=== PATIENT | female | born 1945 | race Two or more races ===

== ENCOUNTER 2017-09-14 19:11 | Observation (INO) | payer MEDICARE ==
[~2017-09-14] VITALS: Ht 154.9 cm; Wt 71.8 kg
[~2017-09-14 19:11] MED LIST: ALLO300T2 PO; ASPI-920 PO; BENA5TAB2 PO; CETI10TA18 PO; CHOL2000 PO; CLOP75TA35 PO; COLC0.6T67 PO; FAMO-1 PO; ISOS30TA PO; LEVO50TA67 PO; META800T87 PO; METF500T7 PO; METO-539 PO; MOME17SP BOTHNARES; MULT1TAB74 PO; NITR0.4T48 SL; PSYL1PAC11 PO; RANO500T3 PO; ROSU10TA PO
[2017-09-14 19:44] LABS: BASOPHILS % (AUTO) 0.2 % (0-1); EOSINOPHILS # (AUTO) 0.3 X10'3 (0-0.9); EOSINOPHILS % (AUTO) 3.3 % (0-6); HEMOGLOBIN 14.1 g/dl (12.0-16.0); LYMPHOCYTES # (AUTO) 2.4 X10'3 (1.1-4.8); LYMPHOCYTES % (AUTO) 22.9 % (21-51); MEAN CORPUSCULAR HEMOGLOBIN 32.9 PG (27.0-31.0); MEAN CORPUSCULAR HGB CONC 33.6 % (33.0-36.5); MEAN CORPUSCULAR VOLUME 97.8 FL (78-98); MEAN PLATELET VOLUME 9.3 FL (7.4-10.4); MONOCYTES % (AUTO) 10.1 % (2-12); NEUTROPHILS # (AUTO) 6.6 X10'3 (1.8-7.7); NEUTROPHILS % (AUTO) 63.5 % (42-75); PLATELET COUNT 242 X10'3 (140-440); RED CELL DISTRIBUTION WIDTH 15.2 % (11.5-14.5); WHITE BLOOD COUNT 10.3 X10'3 (4.5-11.0)
[2017-09-14 19:52] LABS: PARTIAL THROMBOPLASTIN TIME 26 SECONDS (22-32); PROTHROMBIN TIME 10.2 SECONDS (9.0-12.0)
[2017-09-14 19:55] LABS: ALANINE AMINOTRANSFERASE 28 U/L (12-78); ALBUMIN 4.2 G/DL (3.4-5.0); ALBUMIN/GLOBULIN RATIO 1.2 (1.1-1.5); ALKALINE PHOSPHATASE 83 IU/L (46-116); ANION GAP 9 (8-16); ASPARTATE AMINO TRANSFERASE 19 U/L (10-37); BILIRUBIN,TOTAL 0.4 MG/DL (0.1-1.0); BLOOD UREA NITROGEN 20 MG/DL (7-18); BUN/CREATININE RATIO 13.5 (6.6-38.0); CALCIUM 9.8 MG/DL (8.5-10.1); CHLORIDE 103 MMOL/L (99-107); CREATININE 1.48 MG/DL (0.40-0.90); GLUCOSE 142 MG/DL (70-104); POTASSIUM 3.9 MMOL/L (3.5-5.1); SODIUM 141 MMOL/L (135-145); TOTAL CARBON DIOXIDE 29.5 MMOL/L (24-32); TOTAL PROTEIN 7.7 G/DL (6.4-8.2); eGFR 34 ML/MIN
[2017-09-14] MEDS ORDERED: diatrozoate meglu/diatrozoate sod (37% iodine) 120ML oral solution PO ONE (20:20)
[2017-09-14] MEDS ORDERED: nitroGLYCERIN 1gm ointment UD TP ONE (21:25)
[2017-09-14] MEDS ORDERED: nitroGLYCERIN 0.4mg SUBLingual tab SL PRN ×4 (21:25→22:15)
[2017-09-14] MEDS ORDERED: acetaminophen 325mg tablet PO PRN (22:10)
[2017-09-14] MEDS ORDERED: magnesium hydroxide 30ml (MOM) UD suspension PO PRN (22:10)
[2017-09-14] MEDS ORDERED: ondansetron/PF 4mg/2ml inj IV PRN (22:10)
[2017-09-14] MEDS ORDERED: METAXALONE PO PRN (22:15)
[2017-09-14] MEDS ORDERED: non-formulary drug (Mometasone Furoate* (Nasonex*) 2 SPRAYS) BOTHNARES PRN (22:15)
[2017-09-14 23:00] LABS: HEMOGLOBIN A1C 7.2 % (4.5-6.2)
[2017-09-14] MEDS ORDERED: GLIM4TAB79 PO (23:12)
[2017-09-15] VITALS (11 sets, daily range): BP systolic 98–148; BP diastolic 53–75
[2017-09-15] MEDS ORDERED: fluticasone nasal spray 16GM bottle NS PRN (00:40)
[2017-09-15 06:10] LABS: BASOPHILS % (AUTO) 0.4 % (0-1); EOSINOPHILS # (AUTO) 0.4 X10'3 (0-0.9); EOSINOPHILS % (AUTO) 4.8 % (0-6); HEMATOCRIT 40.6 % (35.0-45.0); HEMOGLOBIN 13.8 g/dl (12.0-16.0); LYMPHOCYTES # (AUTO) 2.2 X10'3 (1.1-4.8); LYMPHOCYTES % (AUTO) 25.3 % (21-51); MEAN CORPUSCULAR HEMOGLOBIN 33.1 PG (27.0-31.0); MEAN CORPUSCULAR VOLUME 97.5 FL (78-98); MEAN PLATELET VOLUME 9.5 FL (7.4-10.4); MONOCYTES # (AUTO) 0.8 X10'3 (0-0.9); MONOCYTES % (AUTO) 9.6 % (2-12); NEUTROPHILS # (AUTO) 5.1 X10'3 (1.8-7.7); NEUTROPHILS % (AUTO) 59.9 % (42-75); PLATELET COUNT 214 X10'3 (140-440); RED BLOOD COUNT 4.17 X10'6 (4.20-5.60); RED CELL DISTRIBUTION WIDTH 15.3 % (11.5-14.5); WHITE BLOOD COUNT 8.6 X10'3 (4.5-11.0)
[2017-09-15 06:31] LABS: ALANINE AMINOTRANSFERASE 26 U/L (12-78); ALBUMIN 3.6 G/DL (3.4-5.0); ALBUMIN/GLOBULIN RATIO 1.1 (1.1-1.5); ALKALINE PHOSPHATASE 79 IU/L (46-116); ANION GAP 9 (8-16); ASPARTATE AMINO TRANSFERASE 20 U/L (10-37); BILIRUBIN,TOTAL 0.4 MG/DL (0.1-1.0); BLOOD UREA NITROGEN 21 MG/DL (7-18); BUN/CREATININE RATIO 15.3 (6.6-38.0); CALCIUM 9.8 MG/DL (8.5-10.1); CHLORIDE 105 MMOL/L (99-107); CHOL/HDL RATIO 3.7 (0.00-4.99); CHOLESTEROL 146 MG/DL (0-200); CREATININE 1.37 MG/DL (0.40-0.90); GLUCOSE 165 MG/DL (70-104); HDL CHOLESTEROL 40 MG/DL (35-60); LDL CHOLESTEROL 79 MG/DL (50-100); POTASSIUM 4.1 MMOL/L (3.5-5.1); SODIUM 141 MMOL/L (135-145); TOTAL CARBON DIOXIDE 26.6 MMOL/L (24-32); TOTAL PROTEIN 6.8 G/DL (6.4-8.2); TRIGLYCERIDES 208 MG/DL (20-135); eGFR 38 ML/MIN
[2017-09-15] MEDS ORDERED: levoTHYROXINE 25mcg tablet PO SCH (07:00)
[2017-09-15] MEDS ORDERED: heparin, porcine 5000 units/ml vial SQ SCH (08:00)
[2017-09-15] MEDS ORDERED: metoprolol succinate 25mg (24-HOUR) SR. Tablet PO SCH (08:00)
[2017-09-15] MEDS ORDERED: isosorbide mononitrate 30mg tab.SR.24H PO SCH (08:00)
[2017-09-15] MEDS ORDERED: cetirizine 10mg tablet PO SCH (08:00)
[2017-09-15] MEDS ORDERED: lisinopril 5mg tablet PO SCH ×2 (08:00→11:56)
[2017-09-15] MEDS ORDERED: psyllium seed 3.4 gm packet PO SCH (08:00)
[2017-09-15] MEDS ORDERED: non-formulary drug (Benazepril HCl 1 TAB) PO SCH (08:00)
[2017-09-15] MEDS ORDERED: cyclobenzaprine 10mg tablet PO SCH (08:00)
[2017-09-15] MEDS ORDERED: vitamin D (cholecalciferol) 1,000 unit tablet PO SCH (08:00)
[2017-09-15] MEDS ORDERED: multivitamins, therapeutics tablet PO SCH (08:00)
[2017-09-15] MEDS ORDERED: clopidogrel 75mg tablet PO SCH (08:00)
[2017-09-15] MEDS ORDERED: CAFFEINE CITRATE 60 MG/3 ML injection vial IV PRN (08:05)
[2017-09-15] MEDS ORDERED: regadenoson 0.4mg/5ml syringe IV ONE ×2 (08:05→09:43)
[2017-09-15] MEDS ORDERED: nitroGLYCERIN 0.4mg SUBLingual tab SL PRN ×2 (08:05→14:20)
[2017-09-15] MEDS ORDERED: metoprolol tartrate 1mg/ml inj IV PRN (08:05)
[2017-09-15] MEDS ORDERED: atorvastatin 10mg tablet PO SCH (08:05)
[2017-09-15] MEDS ORDERED: aspirin 81mg tab.chew PO SCH (08:30)
[2017-09-15 09:18] LABS: CREATINE KINASE 109 U/L (26-192); LIPASE 206 U/L (73-393); MAGNESIUM 1.8 MG/DL (1.5-2.4)
[2017-09-15] MEDS ORDERED: CAFFEINE CITRATE 60 MG/3 ML injection vial IV ONE (09:43)
[2017-09-15] MEDS: famotidine 20mg tablet PO SCH ×2 (12:34→19:09)
[2017-09-15] MEDS: ranolazine 500mg SR tablet (Q12H) PO SCH ×2 (12:35→19:09)
[2017-09-15] MEDS ORDERED: aspirin 81mg tab.chew PO ONE (14:20)
[2017-09-15] MEDS ORDERED: clopidogrel 300mg tablet PO ONE (14:20)
[2017-09-15] MEDS ORDERED: morphine 4 MG/ML inj SYRINge IV PRN (14:25)
[2017-09-15 16:32] LABS: CLARITY,URINE CLEAR (Clear); COLOR,URINE YELLOW (Yellow); GLUCOSE, URINE NEGATIVE (Neg); KETONES,URINE NEGATIVE (Neg); LEUKOCYTE ESTERASE ,URINE NEGATIVE (Neg); NITRITES, URINE NEGATIVE (Neg); OCCULT BLOOD,URINE TRACE-LYSED (Neg); PROTEIN,URINE NEGATIVE (Neg); UROBILINOGEN,URINE 0.2 E.U/dL (0.2-1.0)
[2017-09-15 16:33] LABS: UA COLLECTION TYPE VOIDED
[2017-09-15 16:37] LABS: BACTERIA,URINE NONE SEEN /HPF (Neg); MUCUS STRANDS NONE SEEN /LPF (Neg); RBC,URINE 0-2 /HPF (0-2); SQUAMOUS EPITHELIAL CELL,UR FEW /LPF (FEW); WBC,URINE 0-4 /HPF (0-4)
[2017-09-15] MEDS ORDERED: dextrose 50%-water 50ml dispensing syringe IV PRN ×2 (16:55)
[2017-09-15] MEDS ORDERED: MESSAGE TO PHARMACY PO ONE (16:55)
[2017-09-15] MEDS ORDERED: glucagon, human recombinant 1mg kit SUBCUT PRN (16:55)
[2017-09-15] MEDS ORDERED: insulin Lispro (HumaLOG) vial - multi-dose SQ SCH (16:55)
[2017-09-15] MEDS ORDERED: dextrose ORAL solution 15 GM/59 ML bottle PO PRN ×2 (16:55)
[2017-09-15 17:27] LABS: D-DIMER 0.21 MG/L FEU (0-0.50)
[2017-09-15 17:32] LABS: TROPONIN I < 0.04 NG/ML (0.0-0.05)
[2017-09-15] MEDS ORDERED: enoxaparin 40mg/0.4ml syringe SQ SCH (20:00)
[2017-09-15] MEDS ORDERED: enoxaparin 100mg/ml syringe SQ SCH (20:00)
[2017-09-15] MEDS ORDERED: enoxaparin 30mg/0.3ml syringe SUBCUT SCH (20:00)
== END 2017-09-15 19:27 | disposition home or self-care (01) ==
LOC: ER 19:11 → ED HOLD 22:09 → PCU 3S 09-15 07:35
PROVIDERS: ADMIT Internal Medicine; ATTEND Internal Medicine
DX: R07.2 Precordial pain (principal); I25.119 Atherosclerotic heart disease of native coronary artery with unspecified angina pectoris; I12.9 Hypertensive chronic kidney disease with stage 1 through stage 4 chronic kidney disease, or unspecified chronic kidney disease; E11.22 Type 2 diabetes mellitus with diabetic chronic kidney disease; N18.9 Chronic kidney disease, unspecified; K21.9 Gastro-esophageal reflux disease without esophagitis; E78.00 Pure hypercholesterolemia, unspecified; I25.2 Old myocardial infarction; M19.90 Unspecified osteoarthritis, unspecified site; G89.29 Other chronic pain; M54.9 Dorsalgia, unspecified; Z87.891 Personal history of nicotine dependence
CPT/HCPCS: 36415; 71045; 78452; 80053; 80061; 81001; 82550; 82948; 83036; 83690; 83735; 83880; 84443; 84484; 85025; 85379; 85610; 85730; 93005; 93017; 96372; 99285; A9500; G0378; J1644; J1650; J7030; Q9963

== ENCOUNTER 2017-10-10 10:47 | Day surgery (SDC) | payer MEDICARE ==
[2017-10-07 10:10] LABS: BASOPHILS % (AUTO) 0.5 % (0-1); EOSINOPHILS # (AUTO) 0.5 X10'3 (0-0.9); EOSINOPHILS % (AUTO) 5.3 % (0-6); HEMATOCRIT 41.7 % (35.0-45.0); LYMPHOCYTES # (AUTO) 1.9 X10'3 (1.1-4.8); LYMPHOCYTES % (AUTO) 20.7 % (21-51); MEAN CORPUSCULAR HEMOGLOBIN 32.8 PG (27.0-31.0); MEAN CORPUSCULAR HGB CONC 33.5 % (33.0-36.5); MEAN PLATELET VOLUME 9.4 FL (7.4-10.4); MONOCYTES # (AUTO) 0.7 X10'3 (0-0.9); MONOCYTES % (AUTO) 7.5 % (2-12); NEUTROPHILS # (AUTO) 6.1 X10'3 (1.8-7.7); PLATELET COUNT 237 X10'3 (140-440); RED BLOOD COUNT 4.25 X10'6 (4.20-5.60); RED CELL DISTRIBUTION WIDTH 14.3 % (11.5-14.5); WHITE BLOOD COUNT 9.2 X10'3 (4.5-11.0)
[2017-10-07 10:19] LABS: PARTIAL THROMBOPLASTIN TIME 26 SECONDS (22-32); PROTHROMBIN TIME 10.3 SECONDS (9.0-12.0)
[2017-10-07 10:22] LABS: ANION GAP 9 (8-16); BLOOD UREA NITROGEN 29 MG/DL (7-18); BUN/CREATININE RATIO 19.3 (6.6-38.0); CALCIUM 9.3 MG/DL (8.5-10.1); CHLORIDE 102 MMOL/L (99-107); GLUCOSE 115 MG/DL (70-104); POTASSIUM 4.9 MMOL/L (3.5-5.1); SODIUM 140 MMOL/L (135-145); TOTAL CARBON DIOXIDE 29.2 MMOL/L (24-32); eGFR 34 ML/MIN
[2017-10-10] VITALS (10 sets, daily range): BP systolic 89–125; BP diastolic 40–69
[~2017-10-10] VITALS: Ht 154.9 cm; Wt 71.4 kg
[~2017-10-10 10:47] MED LIST changes: -CLOP75TA35 PO; +GLIM4TAB79 PO; -MOME17SP BOTHNARES; -MULT1TAB74 PO; -PSYL1PAC11 PO
[2017-10-10] MEDS ORDERED: LORazepam 0.5 MG tablet PO PRN (11:15)
[2017-10-10] MEDS ORDERED: diphenhydrAMINE 25mg capsule PO PRN (11:15)
[2017-10-10] MEDS ORDERED: normal saline 1000ml 1,000 ML IV SCH (11:15)
[2017-10-10] MEDS ORDERED: ALLO300T8 PO (11:40)
[2017-10-10] MEDS ORDERED: ROSU10TA PO (11:40)
[2017-10-10] MEDS ORDERED: MOME17SP BOTHNARES (11:40)
[2017-10-10] MEDS ORDERED: LIDOcaine 1% w/EPI 1:100,000 30ml vial (MDV) ONE (12:06)
[2017-10-10] MEDS ORDERED: fentaNYL/PF 50MCG/1 ML 2ML syringe ONE (12:07)
[2017-10-10] MEDS ORDERED: midazolam 2 mg/2 ml injection ONE (12:07)
[2017-10-10] MEDS ORDERED: iohexol 350MG/ML 100ml bottle IV ONE (12:07)
[2017-10-10] MEDS ORDERED: OXAZEpam 15mg capsule PO PRN (13:35)
[2017-10-10] MEDS ORDERED: ondansetron/PF 4mg/2ml inj IV PRN (13:35)
== END 2017-10-10 16:15 | disposition home or self-care (01) ==
LOC: SSTAY O 10:47
PROVIDERS: ATTEND Internal Medicine Interventional Cardiology
DX: I25.10 Atherosclerotic heart disease of native coronary artery without angina pectoris (principal); E78.5 Hyperlipidemia, unspecified; I65.23 Occlusion and stenosis of bilateral carotid arteries; G47.33 Obstructive sleep apnea (adult) (pediatric); E11.22 Type 2 diabetes mellitus with diabetic chronic kidney disease; I12.9 Hypertensive chronic kidney disease with stage 1 through stage 4 chronic kidney disease, or unspecified chronic kidney disease; N18.3 Chronic kidney disease, stage 3 (moderate); F03.90 Unspecified dementia, unspecified severity, without behavioral disturbance, psychotic disturbance, mood disturbance, and anxiety; K21.9 Gastro-esophageal reflux disease without esophagitis; I25.2 Old myocardial infarction; M19.90 Unspecified osteoarthritis, unspecified site; Z88.0 Allergy status to penicillin; Z91.048 Other nonmedicinal substance allergy status; Z88.1 Allergy status to other antibiotic agents; Z91.018 Allergy to other foods; Z96.698 Presence of other orthopedic joint implants; Z90.710 Acquired absence of both cervix and uterus; Z86.74 Personal history of sudden cardiac arrest; Z95.5 Presence of coronary angioplasty implant and graft; Z87.891 Personal history of nicotine dependence; Z90.49 Acquired absence of other specified parts of digestive tract; Z87.442 Personal history of urinary calculi; Z79.82 Long term (current) use of aspirin; Z79.84 Long term (current) use of oral hypoglycemic drugs; Z79.899 Other long term (current) drug therapy; Z98.890 Other specified postprocedural states; Z88.8 Allergy status to other drugs, medicaments and biological substances
CPT/HCPCS: 36415; 80048; 82948; 85025; 85610; 85730; 93005; 93458; 99152; A6257; C1769; J1644; J2250; J3010; J3490; J7030; Q0163; Q9967; A4620

== ENCOUNTER → 2018-08-28 | Emergency (ER) | payer MEDICARE ==
[~2018-08-28] VITALS: Ht 154.9 cm; Wt 64.9 kg
[~2018-08-28] MED LIST changes: -ALLO300T2 PO; +ALLO300T8 PO; -BENA5TAB2 PO; +BENA5TAB6 PO; -COLC0.6T67 PO; -META800T87 PO; +MOME17SP BOTHNARES; -ROSU10TA PO; +ROSU10TA2 PO; +acetaminophen 325mg tablet PO ONE; +diphenhydrAMINE 50 mg/ml inj IV ONE; +normal saline 1000ML IV soln IVB ONE; +proCHLORperazine 10 MG/2 ml inj IV ONE
--- NOTE | 2018-08-28 10:42 | NUR ---
PATIENT AWAITING DR RIVAS , DR RIVAS NOTIFIED OF PAIN LEVEL OF 12/30
[2018-08-28 13:17] VITALS: BP 164/92
== END | disposition home or self-care (01) ==
LOC: ER 09:24
DX: G43.909 Migraine, unspecified, not intractable, without status migrainosus (principal); I25.10 Atherosclerotic heart disease of native coronary artery without angina pectoris; E78.00 Pure hypercholesterolemia, unspecified; I25.2 Old myocardial infarction; K21.9 Gastro-esophageal reflux disease without esophagitis; I12.9 Hypertensive chronic kidney disease with stage 1 through stage 4 chronic kidney disease, or unspecified chronic kidney disease; E11.22 Type 2 diabetes mellitus with diabetic chronic kidney disease; N18.9 Chronic kidney disease, unspecified; G89.29 Other chronic pain; M19.90 Unspecified osteoarthritis, unspecified site; Z86.718 Personal history of other venous thrombosis and embolism; Z98.61 Coronary angioplasty status; Z90.49 Acquired absence of other specified parts of digestive tract; Z98.890 Other specified postprocedural states; Z90.710 Acquired absence of both cervix and uterus; Z88.8 Allergy status to other drugs, medicaments and biological substances; Z88.0 Allergy status to penicillin; Z91.018 Allergy to other foods; Z79.82 Long term (current) use of aspirin; Z79.84 Long term (current) use of oral hypoglycemic drugs; Z79.899 Other long term (current) drug therapy
CPT/HCPCS: 36415; 85651; 86140; 96374; 96375; 99283; J0780; J1200; J7030

== ENCOUNTER 2018-11-04 11:55 | Emergency (ER) | payer MEDICARE ==
[~2018-11-04] VITALS: Ht 154.9 cm; Wt 65.0 kg
[~2018-11-04 11:55] MED LIST changes: -acetaminophen 325mg tablet PO ONE; -diphenhydrAMINE 50 mg/ml inj IV ONE; -normal saline 1000ML IV soln IVB ONE; -proCHLORperazine 10 MG/2 ml inj IV ONE
[2018-11-04 12:41] LABS: BASOPHILS % (AUTO) 0.6 % (0-1); EOSINOPHILS # (AUTO) 0.3 X10'3 (0-0.9); EOSINOPHILS % (AUTO) 4.7 % (0-6); HEMATOCRIT 40.7 % (35.0-45.0); HEMOGLOBIN 13.4 g/dl (12.0-16.0); LYMPHOCYTES # (AUTO) 1.6 X10'3 (1.1-4.8); MEAN CORPUSCULAR HEMOGLOBIN 31.5 PG (27.0-31.0); MEAN CORPUSCULAR VOLUME 95.4 FL (78-98); MEAN PLATELET VOLUME 9.5 FL (7.4-10.4); MONOCYTES % (AUTO) 15.4 % (2-12); NEUTROPHILS # (AUTO) 3.4 X10'3 (1.8-7.7); NEUTROPHILS % (AUTO) 54.3 % (42-75); PLATELET COUNT 196 X10'3 (140-440); RED BLOOD COUNT 4.27 X10'6 (4.20-5.60); RED CELL DISTRIBUTION WIDTH 14.5 % (11.5-14.5); WHITE BLOOD COUNT 6.3 X10'3 (4.5-11.0)
[2018-11-04 12:51] LABS: ALANINE AMINOTRANSFERASE 52 U/L (12-78); ALBUMIN 3.8 G/DL (3.4-5.0); ALBUMIN/GLOBULIN RATIO 1.2 (1.1-1.5); ALKALINE PHOSPHATASE 85 IU/L (46-116); ANION GAP 9 (8-16); ASPARTATE AMINO TRANSFERASE 28 U/L (10-37); BILIRUBIN,TOTAL 0.3 MG/DL (0.1-1.0); BLOOD UREA NITROGEN 21 MG/DL (7-18); BUN/CREATININE RATIO 16.9 (6.6-38.0); CALCIUM 9.5 MG/DL (8.5-10.1); CHLORIDE 102 MMOL/L (99-107); CREATININE 1.24 MG/DL (0.40-0.90); GLUCOSE 153 MG/DL (70-104); POTASSIUM 4.2 MMOL/L (3.5-5.1); SODIUM 137 MMOL/L (135-145); TOTAL CARBON DIOXIDE 25.9 MMOL/L (24-32); TOTAL PROTEIN 7.1 G/DL (6.4-8.2); eGFR 42 ML/MIN
[2018-11-04 13:06] LABS: PARTIAL THROMBOPLASTIN TIME 28 SECONDS (22-32)
[2018-11-04 14:23] LABS: D-DIMER 0.34 MG/L FEU (0-0.50)
[2018-11-04] MEDS ORDERED: ESTR1VAG VG (16:10)
[2018-11-04 16:13] VITALS: BP 139/70
== END 2018-11-04 16:15 | disposition home or self-care (01) ==
LOC: ER 11:56
DX: R07.89 Other chest pain (principal); I25.10 Atherosclerotic heart disease of native coronary artery without angina pectoris; E78.00 Pure hypercholesterolemia, unspecified; I25.2 Old myocardial infarction; K21.9 Gastro-esophageal reflux disease without esophagitis; I12.9 Hypertensive chronic kidney disease with stage 1 through stage 4 chronic kidney disease, or unspecified chronic kidney disease; E11.22 Type 2 diabetes mellitus with diabetic chronic kidney disease; N18.9 Chronic kidney disease, unspecified; G89.29 Other chronic pain; M10.9 Gout, unspecified; M19.90 Unspecified osteoarthritis, unspecified site; Z87.11 Personal history of peptic ulcer disease; Z86.718 Personal history of other venous thrombosis and embolism; Z98.61 Coronary angioplasty status; Z90.49 Acquired absence of other specified parts of digestive tract; Z90.710 Acquired absence of both cervix and uterus; Z87.891 Personal history of nicotine dependence; Z95.9 Presence of cardiac and vascular implant and graft, unspecified; Z88.0 Allergy status to penicillin; Z88.1 Allergy status to other antibiotic agents; Z88.8 Allergy status to other drugs, medicaments and biological substances; Z91.018 Allergy to other foods; Z79.82 Long term (current) use of aspirin; Z79.84 Long term (current) use of oral hypoglycemic drugs; Z79.899 Other long term (current) drug therapy
CPT/HCPCS: 36415; 71045; 80053; 83880; 84484; 85025; 85379; 85610; 85730; 93005; 99284

== ENCOUNTER 2018-12-21 16:25 | Emergency (ER) | payer MEDICARE ==
[~2018-12-21] VITALS: Ht 154.9 cm; Wt 62.0 kg
[~2018-12-21 16:25] MED LIST changes: +ESTR1VAG VG; -GLIM4TAB79 PO; +METF500T20 PO; -METF500T7 PO; -METO-539 PO; -RANO500T3 PO
[2018-12-21 17:02] LABS: BASOPHILS # (AUTO) 0.1 X10'3 (0-0.2); BASOPHILS % (AUTO) 0.5 % (0-1); EOSINOPHILS # (AUTO) 0.2 X10'3 (0-0.9); EOSINOPHILS % (AUTO) 1.6 % (0-6); HEMATOCRIT 42.1 % (35.0-45.0); HEMOGLOBIN 13.9 g/dl (12.0-16.0); LYMPHOCYTES # (AUTO) 2.2 X10'3 (1.1-4.8); LYMPHOCYTES % (AUTO) 19.5 % (21-51); MEAN CORPUSCULAR HEMOGLOBIN 31.8 PG (27.0-31.0); MEAN CORPUSCULAR VOLUME 96.4 FL (78-98); MEAN PLATELET VOLUME 8.4 FL (7.4-10.4); MONOCYTES # (AUTO) 0.9 X10'3 (0-0.9); MONOCYTES % (AUTO) 8.1 % (2-12); NEUTROPHILS # (AUTO) 8.1 X10'3 (1.8-7.7); NEUTROPHILS % (AUTO) 70.3 % (42-75); PLATELET COUNT 236 X10'3 (140-440); RED BLOOD COUNT 4.36 X10'6 (4.20-5.60); RED CELL DISTRIBUTION WIDTH 16.7 % (11.5-14.5); WHITE BLOOD COUNT 11.5 X10'3 (4.5-11.0)
[2018-12-21 17:19] LABS: ALANINE AMINOTRANSFERASE 49 U/L (12-78); ALBUMIN 4.2 G/DL (3.4-5.0); ALBUMIN/GLOBULIN RATIO 1.3 (1.1-1.5); ALKALINE PHOSPHATASE 91 IU/L (46-116); ANION GAP 12 (8-16); ASPARTATE AMINO TRANSFERASE 36 U/L (10-37); BILIRUBIN,TOTAL 0.4 MG/DL (0.1-1.0); BLOOD UREA NITROGEN 25 MG/DL (7-18); BUN/CREATININE RATIO 19.5 (6.6-38.0); CALCIUM 10.2 MG/DL (8.5-10.1); CHLORIDE 105 MMOL/L (99-107); CREATININE 1.28 MG/DL (0.40-0.90); GLUCOSE 186 MG/DL (70-104); POTASSIUM 4.5 MMOL/L (3.5-5.1); SODIUM 142 MMOL/L (135-145); TOTAL CARBON DIOXIDE 25.4 MMOL/L (24-32); TOTAL PROTEIN 7.5 G/DL (6.4-8.2); eGFR 41 ML/MIN
[2018-12-21] MEDS ORDERED: normal saline 1000ML IV soln IVB ONE (17:30)
[2018-12-21] MEDS ORDERED: glycopyrrolate 0.2mg/ml inj IV ONE (17:30)
[2018-12-21] MEDS ORDERED: diphenhydrAMINE 50 mg/ml inj IV ONE (17:30)
[2018-12-21] MEDS ORDERED: metoclopramide 5 mg/ml inj IV ONE (17:30)
[2018-12-21 19:48] VITALS: BP 143/88
== END 2018-12-21 19:53 | disposition home or self-care (01) ==
LOC: ER 16:26
DX: R11.2 Nausea with vomiting, unspecified (principal); R10.30 Lower abdominal pain, unspecified; R19.7 Diarrhea, unspecified; R11.10 Vomiting, unspecified; I25.10 Atherosclerotic heart disease of native coronary artery without angina pectoris; E78.00 Pure hypercholesterolemia, unspecified; I25.2 Old myocardial infarction; K21.9 Gastro-esophageal reflux disease without esophagitis; G89.29 Other chronic pain; M10.9 Gout, unspecified; M19.90 Unspecified osteoarthritis, unspecified site; I12.9 Hypertensive chronic kidney disease with stage 1 through stage 4 chronic kidney disease, or unspecified chronic kidney disease; E11.22 Type 2 diabetes mellitus with diabetic chronic kidney disease; N18.9 Chronic kidney disease, unspecified; Z88.1 Allergy status to other antibiotic agents; Z88.0 Allergy status to penicillin; Z88.8 Allergy status to other drugs, medicaments and biological substances; Z91.018 Allergy to other foods; Z79.82 Long term (current) use of aspirin; Z79.899 Other long term (current) drug therapy; Z87.11 Personal history of peptic ulcer disease; Z87.19 Personal history of other diseases of the digestive system; Z86.718 Personal history of other venous thrombosis and embolism; Z90.49 Acquired absence of other specified parts of digestive tract; Z90.710 Acquired absence of both cervix and uterus; Z87.891 Personal history of nicotine dependence; Z79.4 Long term (current) use of insulin; Z95.5 Presence of coronary angioplasty implant and graft
CPT/HCPCS: 36415; 80053; 85025; 85610; 96361; 96374; 96375; 99283; J1200; J2765; J7030; J3490

== ENCOUNTER 2018-12-22 07:38 | Emergency (ER) | payer MEDICARE ==
[~2018-12-22] VITALS: Ht 154.9 cm; Wt 61.0 kg
[2018-12-22 09:13] LABS: EOSINOPHILS # (AUTO) 0.1 X10'3 (0-0.9); MONOCYTES # (AUTO) 0.9 X10'3 (0-0.9); NEUTROPHILS # (AUTO) 5.9 X10'3 (1.8-7.7)
[2018-12-22 09:15] LABS: BASOPHILS % (AUTO) 0.4 % (0-1); HEMATOCRIT 42.5 % (35.0-45.0); HEMOGLOBIN 14.2 g/dl (12.0-16.0); LYMPHOCYTES # (AUTO) 2.1 X10'3 (1.1-4.8); LYMPHOCYTES % (AUTO) 22.9 % (21-51); MEAN CORPUSCULAR HEMOGLOBIN 32.2 PG (27.0-31.0); MEAN CORPUSCULAR HGB CONC 33.3 g/dL (33.0-36.5); MEAN CORPUSCULAR VOLUME 96.7 FL (78-98); MEAN PLATELET VOLUME 9.4 FL (7.4-10.4); NEUTROPHILS % (AUTO) 65.7 % (42-75); PLATELET COUNT 194 X10'3 (140-440); RED BLOOD COUNT 4.39 X10'6 (4.20-5.60); RED CELL DISTRIBUTION WIDTH 16.6 % (11.5-14.5)
[2018-12-22 09:31] LABS: ALANINE AMINOTRANSFERASE 39 U/L (12-78); ALBUMIN/GLOBULIN RATIO 1.3 (1.1-1.5); ALKALINE PHOSPHATASE 84 IU/L (46-116); ANION GAP 14 (8-16); ASPARTATE AMINO TRANSFERASE 35 U/L (10-37); BILIRUBIN,TOTAL 0.5 MG/DL (0.1-1.0); BLOOD UREA NITROGEN 17 MG/DL (7-18); BUN/CREATININE RATIO 16.7 (6.6-38.0); CALCIUM 9.6 MG/DL (8.5-10.1); CHLORIDE 105 MMOL/L (99-107); CREATININE 1.02 MG/DL (0.40-0.90); GLUCOSE 151 MG/DL (70-104); POTASSIUM 3.9 MMOL/L (3.5-5.1); SODIUM 140 MMOL/L (135-145); TOTAL CARBON DIOXIDE 21.5 MMOL/L (24-32); TOTAL PROTEIN 7.2 G/DL (6.4-8.2); eGFR 53 ML/MIN
--- NOTE | 2018-12-22 10:06 | NUR ---
pt out to ct with extension work director via wheelchair
[2018-12-22 12:03] VITALS: BP 155/91
== END 2018-12-22 12:05 | disposition home or self-care (01) ==
LOC: ER 07:38
DX: K62.5 Hemorrhage of anus and rectum (principal); N28.89 Other specified disorders of kidney and ureter; I25.10 Atherosclerotic heart disease of native coronary artery without angina pectoris; E78.00 Pure hypercholesterolemia, unspecified; I25.2 Old myocardial infarction; K21.9 Gastro-esophageal reflux disease without esophagitis; I12.9 Hypertensive chronic kidney disease with stage 1 through stage 4 chronic kidney disease, or unspecified chronic kidney disease; E11.22 Type 2 diabetes mellitus with diabetic chronic kidney disease; N18.9 Chronic kidney disease, unspecified; G89.29 Other chronic pain; M10.9 Gout, unspecified; M19.90 Unspecified osteoarthritis, unspecified site; Z98.61 Coronary angioplasty status; Z90.49 Acquired absence of other specified parts of digestive tract; Z86.718 Personal history of other venous thrombosis and embolism; Z87.11 Personal history of peptic ulcer disease; Z90.710 Acquired absence of both cervix and uterus
CPT/HCPCS: 36415; 74176; 80053; 85025; 99284

== ENCOUNTER 2019-04-14 07:46 | Emergency (ER) | payer MEDICARE ==
[~2019-04-14] VITALS: Ht 154.9 cm; Wt 60.0 kg
[2019-04-14] MEDS ORDERED: aspirin 81mg tab.chew PO ONE (08:15)
[2019-04-14] MEDS ORDERED: ondansetron 4mg rapidly disintigrating tab PO ONE (08:20)
[2019-04-14] MEDS: nitroGLYCERIN 0.4mg SUBLingual tab SL PRN ×4 (08:21→08:47)
[2019-04-14 08:49] LABS: BASOPHILS # (AUTO) 0.1 X10'3 (0-0.2); BASOPHILS % (AUTO) 1.9 % (0-1); EOSINOPHILS # (AUTO) 0.2 X10'3 (0-0.9); EOSINOPHILS % (AUTO) 3.1 % (0-6); HEMATOCRIT 41.5 % (35.0-45.0); LYMPHOCYTES # (AUTO) 2.6 X10'3 (1.1-4.8); MEAN CORPUSCULAR HGB CONC 33.8 g/dL (33.0-36.5); MEAN CORPUSCULAR VOLUME 97.6 FL (78-98); MONOCYTES # (AUTO) 0.7 X10'3 (0-0.9); MONOCYTES % (AUTO) 10.6 % (2-12); NEUTROPHILS # (AUTO) 3.2 X10'3 (1.8-7.7); NEUTROPHILS % (AUTO) 46.4 % (42-75); PLATELET COUNT 224 X10'3 (140-440); RED BLOOD COUNT 4.25 X10'6 (4.20-5.60); RED CELL DISTRIBUTION WIDTH 14.4 % (11.5-14.5); WHITE BLOOD COUNT 6.9 X10'3 (4.5-11.0)
[2019-04-14 09:01] LABS: ALANINE AMINOTRANSFERASE 34 U/L (12-78); ALBUMIN 4.3 G/DL (3.4-5.0); ALBUMIN/GLOBULIN RATIO 1.4 (1.1-1.5); ALKALINE PHOSPHATASE 75 IU/L (46-116); ANION GAP 7 (8-16); ASPARTATE AMINO TRANSFERASE 26 U/L (10-37); BILIRUBIN,TOTAL 0.4 MG/DL (0.1-1.0); BLOOD UREA NITROGEN 19 MG/DL (7-18); BUN/CREATININE RATIO 17.6 (6.6-38.0); CALCIUM 9.9 MG/DL (8.5-10.1); CHLORIDE 104 MMOL/L (99-107); CREATININE 1.08 MG/DL (0.40-0.90); GLUCOSE 143 MG/DL (70-104); POTASSIUM 4.3 MMOL/L (3.5-5.1); SODIUM 139 MMOL/L (135-145); TOTAL CARBON DIOXIDE 28.2 MMOL/L (24-32); TOTAL PROTEIN 7.4 G/DL (6.4-8.2); eGFR 49 ML/MIN
[2019-04-14] MEDS ORDERED: NITR0.4T51 SL (11:11)
[2019-04-14 11:46] VITALS: BP 134/77
== END 2019-04-14 11:53 | disposition home or self-care (01) ==
LOC: ER 07:47
DX: R07.89 Other chest pain (principal); I25.10 Atherosclerotic heart disease of native coronary artery without angina pectoris; E78.00 Pure hypercholesterolemia, unspecified; I25.2 Old myocardial infarction; K21.9 Gastro-esophageal reflux disease without esophagitis; G89.29 Other chronic pain; M10.9 Gout, unspecified; M19.90 Unspecified osteoarthritis, unspecified site; I12.9 Hypertensive chronic kidney disease with stage 1 through stage 4 chronic kidney disease, or unspecified chronic kidney disease; E11.22 Type 2 diabetes mellitus with diabetic chronic kidney disease; N18.9 Chronic kidney disease, unspecified; Z95.5 Presence of coronary angioplasty implant and graft; Z90.49 Acquired absence of other specified parts of digestive tract; Z90.710 Acquired absence of both cervix and uterus; Z86.718 Personal history of other venous thrombosis and embolism; Z88.1 Allergy status to other antibiotic agents; Z88.0 Allergy status to penicillin; Z79.82 Long term (current) use of aspirin; Z79.899 Other long term (current) drug therapy
CPT/HCPCS: 36415; 71045; 80053; 84484; 85025; 93005; 99284

== ENCOUNTER 2019-05-21 12:42 | Emergency (ER) | payer MEDICARE ==
[~2019-05-21] VITALS: Ht 154.9 cm; Wt 63.0 kg
[2019-05-21 13:10] LABS: CLARITY,URINE SLIGHTLY CLOUDY (Clear); COLOR,URINE YELLOW (Yellow); GLUCOSE, URINE NEGATIVE (Neg); KETONES,URINE NEGATIVE (Neg); LEUKOCYTE ESTERASE ,URINE NEGATIVE (Neg); NITRITES, URINE NEGATIVE (Neg); OCCULT BLOOD,URINE TRACE-INTACT (Neg); PH,URINE 5.5 (4.8-8.0); PROTEIN,URINE NEGATIVE (Neg); UROBILINOGEN,URINE 0.2 E.U/dL (0.2-1.0)
[2019-05-21 13:10] LABS: BASOPHILS % (AUTO) 0.5 % (0-1); EOSINOPHILS # (AUTO) 0.4 X10'3 (0-0.9); EOSINOPHILS % (AUTO) 4.8 % (0-6); HEMATOCRIT 41.6 % (35.0-45.0); HEMOGLOBIN 13.8 g/dl (12.0-16.0); LYMPHOCYTES # (AUTO) 3.3 X10'3 (1.1-4.8); MEAN CORPUSCULAR HEMOGLOBIN 32.1 PG (27.0-31.0); MEAN CORPUSCULAR HGB CONC 33.2 g/dL (33.0-36.5); MEAN CORPUSCULAR VOLUME 96.7 FL (78-98); MEAN PLATELET VOLUME 8.7 FL (7.4-10.4); MONOCYTES # (AUTO) 0.8 X10'3 (0-0.9); MONOCYTES % (AUTO) 8.3 % (2-12); NEUTROPHILS # (AUTO) 4.8 X10'3 (1.8-7.7); NEUTROPHILS % (AUTO) 51.4 % (42-75); PLATELET COUNT 263 X10'3 (140-440); RED CELL DISTRIBUTION WIDTH 14.1 % (11.5-14.5); WHITE BLOOD COUNT 9.4 X10'3 (4.5-11.0)
[2019-05-21 13:12] LABS: UA COLLECTION TYPE CLN CATCH MIDSTREAM
[2019-05-21 13:30] LABS: ALANINE AMINOTRANSFERASE 32 U/L (12-78); ALBUMIN 4.3 G/DL (3.4-5.0); ALBUMIN/GLOBULIN RATIO 1.3 (1.1-1.5); ALKALINE PHOSPHATASE 80 IU/L (46-116); AMYLASE 75 U/L (25-115); ANION GAP 10 (8-16); ASPARTATE AMINO TRANSFERASE 27 U/L (10-37); BILIRUBIN,TOTAL 0.3 MG/DL (0.1-1.0); BLOOD UREA NITROGEN 24 MG/DL (7-18); BUN/CREATININE RATIO 22.9 (6.6-38.0); CALCIUM 9.9 MG/DL (8.5-10.1); CHLORIDE 104 MMOL/L (99-107); CREATININE 1.05 MG/DL (0.40-0.90); GLUCOSE 119 MG/DL (70-104); LIPASE 244 U/L (73-393); POTASSIUM 4.3 MMOL/L (3.5-5.1); SODIUM 145 MMOL/L (135-145); TOTAL PROTEIN 7.5 G/DL (6.4-8.2); eGFR 51 ML/MIN
[2019-05-21 13:34] LABS: BACTERIA,URINE FEW /HPF (Neg); MUCUS STRANDS FEW /LPF (Neg); RBC,URINE 0-2 /HPF (0-2); SQUAMOUS EPITHELIAL CELL,UR MODERATE /LPF (FEW); WBC,URINE 0-4 /HPF (0-4)
[2019-05-21] MEDS ORDERED: ondansetron/PF 4mg/2ml inj IV ONE (14:10)
[2019-05-21] MEDS ORDERED: HYDROcodone/acetaminophen 5mg/325mg tablet PO ONE (14:15)
[2019-05-21] MEDS ORDERED: ondansetron 4mg rapidly disintigrating tab PO ONE (14:15)
[2019-05-21] MEDS ORDERED: BISA-155 PO (14:57)
[2019-05-21 15:12] VITALS: BP 145/80
== END 2019-05-21 15:15 | disposition home or self-care (01) ==
LOC: ER 12:43
DX: R10.84 Generalized abdominal pain (principal); R11.0 Nausea; I25.10 Atherosclerotic heart disease of native coronary artery without angina pectoris; I25.2 Old myocardial infarction; K21.9 Gastro-esophageal reflux disease without esophagitis; I12.9 Hypertensive chronic kidney disease with stage 1 through stage 4 chronic kidney disease, or unspecified chronic kidney disease; E11.22 Type 2 diabetes mellitus with diabetic chronic kidney disease; N18.9 Chronic kidney disease, unspecified; M19.90 Unspecified osteoarthritis, unspecified site; G89.29 Other chronic pain; Z86.718 Personal history of other venous thrombosis and embolism; Z98.61 Coronary angioplasty status; Z90.49 Acquired absence of other specified parts of digestive tract; Z90.710 Acquired absence of both cervix and uterus; Z98.890 Other specified postprocedural states; Z88.1 Allergy status to other antibiotic agents; Z88.0 Allergy status to penicillin; Z88.8 Allergy status to other drugs, medicaments and biological substances; Z91.018 Allergy to other foods; Z79.82 Long term (current) use of aspirin; Z79.84 Long term (current) use of oral hypoglycemic drugs; Z79.899 Other long term (current) drug therapy
CPT/HCPCS: 36415; 74176; 80053; 81001; 82150; 83690; 85025; 99284

== ENCOUNTER 2019-08-17 17:40 | Inpatient (IN) | payer MEDICARE ==
[~2019-08-17] VITALS: Ht 154.9 cm; Wt 63.1 kg
[~2019-08-17 17:40] MED LIST changes: +BISA-155 PO
[2019-08-17 18:21] LABS: BASOPHILS % (AUTO) 0.4 % (0-1); EOSINOPHILS # (AUTO) 0.1 X10'3 (0-0.9); HEMATOCRIT 41.4 % (35.0-45.0); HEMOGLOBIN 13.6 g/dl (12.0-16.0); MEAN CORPUSCULAR HEMOGLOBIN 31.9 PG (27.0-31.0); MEAN CORPUSCULAR HGB CONC 32.8 g/dL (33.0-36.5); MEAN CORPUSCULAR VOLUME 97.3 FL (78-98); MEAN PLATELET VOLUME 8.9 FL (7.4-10.4); MONOCYTES # (AUTO) 0.9 X10'3 (0-0.9); MONOCYTES % (AUTO) 7.9 % (2-12); NEUTROPHILS # (AUTO) 8.7 X10'3 (1.8-7.7); NEUTROPHILS % (AUTO) 73.7 % (42-75); PLATELET COUNT 241 X10'3 (140-440); RED BLOOD COUNT 4.26 X10'6 (4.20-5.60); RED CELL DISTRIBUTION WIDTH 14.1 % (11.5-14.5); WHITE BLOOD COUNT 11.8 X10'3 (4.5-11.0)
[2019-08-17] MEDS ORDERED: aspirin 81mg tab.chew PO ONE (18:25)
[2019-08-17] MEDS ORDERED: nitroGLYCERIN 0.4mg SUBLingual tab SL PRN ×2 (18:25→20:25)
[2019-08-17] MEDS ORDERED: nitroGLYCERIN 0.4mg/hour patch TD ONE (18:25)
--- NOTE | 2019-08-17 18:29 | NUR ---
Patients HR going up to 170-190's, advised THANG Perez. Will get a new EKG.
[2019-08-17 18:36] LABS: ALANINE AMINOTRANSFERASE 29 U/L (12-78); ALBUMIN 4.4 G/DL (3.4-5.0); ALBUMIN/GLOBULIN RATIO 1.4 (1.1-1.5); ALKALINE PHOSPHATASE 70 IU/L (46-116); ANION GAP 9 (8-16); ASPARTATE AMINO TRANSFERASE 28 U/L (10-37); BILIRUBIN,TOTAL 0.3 MG/DL (0.1-1.0); BLOOD UREA NITROGEN 29 MG/DL (7-18); BUN/CREATININE RATIO 21.2 (6.6-38.0); CALCIUM 10.2 MG/DL (8.5-10.1); CHLORIDE 104 MMOL/L (99-107); CREATININE 1.37 MG/DL (0.40-0.90); GLUCOSE 126 MG/DL (70-104); POTASSIUM 4.1 MMOL/L (3.5-5.1); SODIUM 140 MMOL/L (135-145); TOTAL CARBON DIOXIDE 26.6 MMOL/L (24-32); TOTAL PROTEIN 7.5 G/DL (6.4-8.2); eGFR 37 ML/MIN
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
[2019-08-17 18:50] LABS: MAGNESIUM 1.8 MG/DL (1.5-2.4)
[2019-08-17 19:42] LABS: PARTIAL THROMBOPLASTIN TIME 27 SECONDS (22-32)
[2019-08-17] MEDS ORDERED: nitroGLYCERIN-Tridil 50MG/D5W 250 ML IV SCH (20:15)
[2019-08-17] MEDS ORDERED: morphine 2 MG/ML inj. syringe IV PRN ×2 (20:25)
[2019-08-17] MEDS ORDERED: acetaminophen 325mg tablet PO PRN (20:25)
[2019-08-17] MEDS ORDERED: magnesium hydroxide 30ml (MOM) UD suspension PO PRN (20:25)
[2019-08-17] MEDS ORDERED: ESTRADIOL VG SCH (20:25)
[2019-08-17] MEDS ORDERED: ondansetron/PF 4mg/2ml inj IV PRN (20:25)
[2019-08-17] MEDS ORDERED: mag hydrox/Alum hydrox/simeth 30ml oral suspension PO PRN (20:25)
[2019-08-17] MEDS ORDERED: bisacodyl 5mg tablet.DR PO SCH (20:25)
[2019-08-17] MEDS ORDERED: metoprolol tartrate 1mg/ml inj IV ONE (20:30)
[2019-08-17] MEDS ORDERED: atorvastatin 20mg tablet PO SCH (21:00)
[2019-08-17] MEDS: metoprolol tartrate 25mg tablet PO SCH (21:05)
[2019-08-17 22:49] VITALS: BP 133/65
[2019-08-18 00:41] LABS: BASOPHILS % (AUTO) 0.5 % (0-1); EOSINOPHILS # (AUTO) 0.2 X10'3 (0-0.9); EOSINOPHILS % (AUTO) 2.1 % (0-6); HEMATOCRIT 38.7 % (35.0-45.0); HEMOGLOBIN 12.9 g/dl (12.0-16.0); LYMPHOCYTES # (AUTO) 2.9 X10'3 (1.1-4.8); LYMPHOCYTES % (AUTO) 35.8 % (21-51); MEAN CORPUSCULAR HEMOGLOBIN 32.6 PG (27.0-31.0); MEAN CORPUSCULAR HGB CONC 33.5 g/dL (33.0-36.5); MEAN CORPUSCULAR VOLUME 97.5 FL (78-98); MEAN PLATELET VOLUME 8.9 FL (7.4-10.4); MONOCYTES # (AUTO) 0.7 X10'3 (0-0.9); MONOCYTES % (AUTO) 8.8 % (2-12); NEUTROPHILS # (AUTO) 4.3 X10'3 (1.8-7.7); NEUTROPHILS % (AUTO) 52.8 % (42-75); PLATELET COUNT 209 X10'3 (140-440); RED BLOOD COUNT 3.97 X10'6 (4.20-5.60); RED CELL DISTRIBUTION WIDTH 14.1 % (11.5-14.5); WHITE BLOOD COUNT 8.2 X10'3 (4.5-11.0)
[2019-08-18 00:59] LABS: ALANINE AMINOTRANSFERASE 25 U/L (12-78); ALBUMIN 3.6 G/DL (3.4-5.0); ALBUMIN/GLOBULIN RATIO 1.2 (1.1-1.5); ALKALINE PHOSPHATASE 62 IU/L (46-116); ANION GAP 7 (8-16); ASPARTATE AMINO TRANSFERASE 23 U/L (10-37); BILIRUBIN,TOTAL 0.3 MG/DL (0.1-1.0); BLOOD UREA NITROGEN 26 MG/DL (7-18); BUN/CREATININE RATIO 20.8 (6.6-38.0); CALCIUM 9.5 MG/DL (8.5-10.1); CHLORIDE 107 MMOL/L (99-107); CREATININE 1.25 MG/DL (0.40-0.90); GLUCOSE 193 MG/DL (70-104); POTASSIUM 3.9 MMOL/L (3.5-5.1); SODIUM 143 MMOL/L (135-145); TOTAL CARBON DIOXIDE 29.2 MMOL/L (24-32); TOTAL PROTEIN 6.5 G/DL (6.4-8.2); eGFR 42 ML/MIN
[2019-08-18 02:00] VITALS: BP 127/70
[2019-08-18 03:00] VITALS: BP 124/71
[2019-08-18 04:00] VITALS: BP 123/62
[2019-08-18 06:00] VITALS: BP_SYST 118; BP_SYST 153; BP_DIAS 101; BP_DIAS 82
--- NOTE | 2019-08-18 06:40 | NUR ---
Patient in room PCU 3028. I have received report from Radha KWONG and had the opportunity to ask questions and assume patient care. Awake and alert no signs of distress.
--- NOTE | 2019-08-18 06:41 | NUR ---
Patient in room PCU 3028. I have received report from VARGHESE Garcia and had the opportunity to ask questions and assume patient care.
[2019-08-18] MEDS: metoprolol tartrate 25mg tablet PO SCH (07:22)
[2019-08-18] MEDS ORDERED: levoTHYROXINE 25mcg tablet PO SCH (08:00)
[2019-08-18] MEDS ORDERED: cetirizine 10mg tablet PO SCH (08:00)
[2019-08-18] MEDS ORDERED: allopurinol 300 MG tablet PO SCH (08:00)
[2019-08-18] MEDS ORDERED: heparin, porcine 5000 units/ml vial SQ SCH (08:00)
[2019-08-18] MEDS ORDERED: aspirin 81mg tab.chew PO SCH (08:00)
[2019-08-18] MEDS ORDERED: famotidine 20mg tablet PO SCH (08:00)
[2019-08-18] MEDS ORDERED: lisinopril 5mg tablet PO SCH (08:00)
[2019-08-18 11:00] VITALS: BP 127/59
--- NOTE | 2019-08-18 11:06 | NUR ---
Per Dr. Peralta's orders stopped nitro drip.
[2019-08-18] MEDS ORDERED: METO-395 PO (12:10)
--- NOTE | 2019-08-18 13:03 | NUR ---
Patient ambulated 600 feet, no sob, no sign of distress.
--- NOTE | 2019-08-18 13:54 | NUR ---
Patient is stable for discharge per MD orders. All discharge instructions reviewed with patient and all questions answered. New prescriptions called into [facility] pharmacy escript. PIV discontinued, media monitor discontinued. [facility] mode of transport was a personal vehicle.
--- NOTE | 2019-08-18 13:54 | NUR ---
[place] Medication Administration: For this medication-pass time frame, all medication were reviewed, dispensed, administered and documented per hospital policy by VARGHESE Milton.
--- NOTE | 2019-08-18 13:54 | NUR ---
[place] documentation: I have reviewed and agree with all interventions, assessments performed and documented by VARGHESE Milton.
== END 2019-08-18 13:54 | disposition home or self-care (01) | DRG 303 ==
LOC: ER 17:40 → ED HOLD 20:23 → PCU 3S 22:39
PROVIDERS: ADMIT Internal Medicine; ATTEND Internal Medicine
DX: I25.110 Atherosclerotic heart disease of native coronary artery with unstable angina pectoris (principal); E11.22 Type 2 diabetes mellitus with diabetic chronic kidney disease; E78.00 Pure hypercholesterolemia, unspecified; I12.9 Hypertensive chronic kidney disease with stage 1 through stage 4 chronic kidney disease, or unspecified chronic kidney disease; I25.2 Old myocardial infarction; N18.9 Chronic kidney disease, unspecified; Z87.11 Personal history of peptic ulcer disease; Z87.19 Personal history of other diseases of the digestive system; Z95.5 Presence of coronary angioplasty implant and graft; Z90.710 Acquired absence of both cervix and uterus; Z87.891 Personal history of nicotine dependence; Z88.0 Allergy status to penicillin; Z88.8 Allergy status to other drugs, medicaments and biological substances; Z88.1 Allergy status to other antibiotic agents
CPT/HCPCS: 36415; 71045; 80053; 83735; 83880; 84484; 85025; 85610; 85730; 87081; 93005; 99285; G0378; J1644; J3490

== ENCOUNTER 2019-09-19 22:18 | Emergency (ER) | payer MEDICARE ==
[~2019-09-19] VITALS: Ht 154.9 cm; Wt 62.7 kg
[~2019-09-19 22:18] MED LIST changes: -ISOS30TA PO; +METF-900 PO; -METF500T20 PO; +METO-395 PO; -MOME17SP BOTHNARES
[2019-09-19] MEDS ORDERED: LORazepam 2 mg/ml vial IV ONE (22:45)
[2019-09-19 22:47] LABS: BASOPHILS % (AUTO) 0.5 % (0-1); EOSINOPHILS # (AUTO) 0.3 X10'3 (0-0.9); EOSINOPHILS % (AUTO) 3.8 % (0-6); HEMATOCRIT 41.3 % (35.0-45.0); HEMOGLOBIN 13.5 g/dl (12.0-16.0); LYMPHOCYTES # (AUTO) 1.7 X10'3 (1.1-4.8); LYMPHOCYTES % (AUTO) 22.8 % (21-51); MEAN CORPUSCULAR HEMOGLOBIN 32.1 PG (27.0-31.0); MEAN CORPUSCULAR HGB CONC 32.7 g/dL (33.0-36.5); MEAN CORPUSCULAR VOLUME 98.1 FL (78-98); MONOCYTES # (AUTO) 0.7 X10'3 (0-0.9); NEUTROPHILS # (AUTO) 4.7 X10'3 (1.8-7.7); NEUTROPHILS % (AUTO) 62.9 % (42-75); PLATELET COUNT 226 X10'3 (140-440); RED BLOOD COUNT 4.21 X10'6 (4.20-5.60); RED CELL DISTRIBUTION WIDTH 14.4 % (11.5-14.5); WHITE BLOOD COUNT 7.5 X10'3 (4.5-11.0)
[2019-09-19 23:04] LABS: ALANINE AMINOTRANSFERASE 27 U/L (12-78); ALBUMIN 3.8 G/DL (3.4-5.0); ALBUMIN/GLOBULIN RATIO 1.2 (1.1-1.5); ALKALINE PHOSPHATASE 80 IU/L (46-116); ANION GAP 9 (8-16); ASPARTATE AMINO TRANSFERASE 21 U/L (10-37); BILIRUBIN,TOTAL 0.2 MG/DL (0.1-1.0); BLOOD UREA NITROGEN 19 MG/DL (7-18); CALCIUM 9.6 MG/DL (8.5-10.1); CHLORIDE 106 MMOL/L (99-107); CREATININE 1.19 MG/DL (0.40-0.90); GLUCOSE 219 MG/DL (70-104); POTASSIUM 4.1 MMOL/L (3.5-5.1); SODIUM 142 MMOL/L (135-145); TOTAL CARBON DIOXIDE 27.2 MMOL/L (24-32); TOTAL PROTEIN 7.1 G/DL (6.4-8.2); eGFR 44 ML/MIN
[2019-09-20 01:54] VITALS: BP 130/79
== END 2019-09-20 01:55 | disposition home or self-care (01) ==
LOC: ER 22:19
DX: F41.0 Panic disorder [episodic paroxysmal anxiety] (principal); R07.89 Other chest pain; I25.10 Atherosclerotic heart disease of native coronary artery without angina pectoris; E78.00 Pure hypercholesterolemia, unspecified; I12.9 Hypertensive chronic kidney disease with stage 1 through stage 4 chronic kidney disease, or unspecified chronic kidney disease; I25.2 Old myocardial infarction; K21.9 Gastro-esophageal reflux disease without esophagitis; N18.9 Chronic kidney disease, unspecified; E11.22 Type 2 diabetes mellitus with diabetic chronic kidney disease; G89.29 Other chronic pain; Z86.718 Personal history of other venous thrombosis and embolism; Z90.49 Acquired absence of other specified parts of digestive tract; Z98.61 Coronary angioplasty status; Z90.710 Acquired absence of both cervix and uterus; Z98.890 Other specified postprocedural states; Z88.0 Allergy status to penicillin; Z79.82 Long term (current) use of aspirin; Z79.899 Other long term (current) drug therapy
CPT/HCPCS: 36415; 71045; 80053; 84484; 85025; 93005; 96374; 99285; J2060

== ENCOUNTER 2020-07-20 13:29 | Outpatient (CLI) | payer MEDICARE | END 2020-07-20 23:59 | disposition home or self-care (01) | LOC: RAD 13:29 | PROVIDERS: ATTEND Family Medicine | DX: K21.9 Gastro-esophageal reflux disease without esophagitis (principal); R13.14 Dysphagia, pharyngoesophageal phase; R09.89 Other specified symptoms and signs involving the circulatory and respiratory systems | CPT/HCPCS: 74230 ==

== ENCOUNTER 2022-02-26 09:45 | Emergency (ER) | payer MEDICARE ==
[~2022-02-26] VITALS: Ht 154.9 cm; Wt 63.0 kg
[~2022-02-26 09:45] MED LIST changes: +ASPI-1071 PO; -ASPI-920 PO; -BENA5TAB6 PO; -BISA-155 PO; -CETI10TA18 PO; -CHOL2000 PO; +CYAN500T71 PO; +DAPA10TA; +ESCI-8; -ESTR1VAG VG; -FAMO-1 PO; +FAMO20TA8 PO; +FEXO-271 PO; +ISOS30TA84 PO; +MULT400T15
[2022-02-26 10:34] VITALS: BP 168/84
[2022-02-26 10:41] LABS: BASOPHILS # (AUTO) 0.1 X10'3 (0-0.2); BASOPHILS % (AUTO) 0.7 % (0-1); EOSINOPHILS # (AUTO) 0.2 X10'3 (0-0.9); HEMATOCRIT 46.1 % (35.0-45.0); HEMOGLOBIN 15.2 g/dl (12.0-16.0); LYMPHOCYTES # (AUTO) 3.4 X10'3 (1.1-4.8); LYMPHOCYTES % (AUTO) 33.5 % (21-51); MEAN CORPUSCULAR HGB CONC 33.1 g/dL (33.0-36.5); MEAN CORPUSCULAR VOLUME 93.6 FL (78-98); MEAN PLATELET VOLUME 8.5 FL (7.4-10.4); MONOCYTES % (AUTO) 10.1 % (2-12); NEUTROPHILS # (AUTO) 5.4 X10'3 (1.8-7.7); NEUTROPHILS % (AUTO) 53.7 % (42-75); PLATELET COUNT 252 X10'3 (140-440); RED BLOOD COUNT 4.92 X10'6 (4.20-5.60); RED CELL DISTRIBUTION WIDTH 15.4 % (11.5-14.5); WHITE BLOOD COUNT 10.1 X10'3 (4.5-11.0)
[2022-02-26 10:52] LABS: ALANINE AMINOTRANSFERASE 37 U/L (12-78); ALBUMIN 4.2 G/DL (3.4-5.0); ALBUMIN/GLOBULIN RATIO 1.1 (1.1-1.5); ALKALINE PHOSPHATASE 100 IU/L (46-116); ANION GAP 8 (8-16); ASPARTATE AMINO TRANSFERASE 27 U/L (10-37); BILIRUBIN,TOTAL 0.3 MG/DL (0.1-1.0); BLOOD UREA NITROGEN 28 MG/DL (7-18); BUN/CREATININE RATIO 16.7 (6.6-38.0); CALCIUM 9.9 MG/DL (8.5-10.1); CHLORIDE 106 MMOL/L (99-107); CREATININE 1.68 MG/DL (0.40-0.90); GLUCOSE 98 MG/DL (70-104); POTASSIUM 4.6 MMOL/L (3.5-5.1); SODIUM 141 MMOL/L (135-145); TOTAL PROTEIN 7.9 G/DL (6.4-8.2); eGFR 29 ML/MIN
[2022-02-26] MEDS ORDERED: ondansetron/PF 4mg/2ml inj IV ONE (11:00)
[2022-02-26] MEDS ORDERED: nitroGLYCERIN 0.4mg SUBLingual tab SL PRN (11:00)
[2022-02-26] MEDS ORDERED: aspirin 81mg tab.chew PO ONE (11:00)
== END 2022-02-26 12:53 | disposition home or self-care (01) ==
LOC: ER 09:46
DX: R07.9 Chest pain, unspecified (principal); Z20.822 Contact with and (suspected) exposure to COVID-19; R11.0 Nausea; R53.83 Other fatigue; K21.9 Gastro-esophageal reflux disease without esophagitis; I13.10 Hypertensive heart and chronic kidney disease without heart failure, with stage 1 through stage 4 chronic kidney disease, or unspecified chronic kidney disease; E11.22 Type 2 diabetes mellitus with diabetic chronic kidney disease; N18.9 Chronic kidney disease, unspecified; Z90.49 Acquired absence of other specified parts of digestive tract; Z98.890 Other specified postprocedural states; G89.29 Other chronic pain; Z88.1 Allergy status to other antibiotic agents; Z88.0 Allergy status to penicillin; Z79.899 Other long term (current) drug therapy; Z88.8 Allergy status to other drugs, medicaments and biological substances
CPT/HCPCS: 36415; 71045; 80053; 83880; 84484; 85025; 87635; 93005; 96374; 99285; C9803; J2405

== ENCOUNTER 2022-07-26 12:21 | Emergency (ER) | payer MEDICARE ==
[~2022-07-26] VITALS: Ht 154.9 cm; Wt 65.0 kg
[2022-07-26 12:44] LABS: BASOPHILS % (AUTO) 0.4 % (0-1); EOSINOPHILS # (AUTO) 0.2 X10'3 (0-0.9); EOSINOPHILS % (AUTO) 2.3 % (0-6); HEMATOCRIT 44.9 % (35.0-45.0); LYMPHOCYTES # (AUTO) 2.4 X10'3 (1.1-4.8); LYMPHOCYTES % (AUTO) 28.1 % (21-51); MEAN CORPUSCULAR HEMOGLOBIN 32.7 PG (27.0-31.0); MEAN CORPUSCULAR HGB CONC 33.5 g/dL (33.0-36.5); MEAN CORPUSCULAR VOLUME 97.6 FL (78-98); MEAN PLATELET VOLUME 8.9 FL (7.4-10.4); MONOCYTES # (AUTO) 0.9 X10'3 (0-0.9); MONOCYTES % (AUTO) 10.2 % (2-12); NEUTROPHILS # (AUTO) 5.1 X10'3 (1.8-7.7); PLATELET COUNT 204 X10'3 (140-440); RED CELL DISTRIBUTION WIDTH 14.8 % (11.5-14.5); WHITE BLOOD COUNT 8.6 X10'3 (4.5-11.0)
[2022-07-26 13:01] LABS: ALANINE AMINOTRANSFERASE 27 U/L (12-78); ALBUMIN/GLOBULIN RATIO 1.2 (1.1-1.5); ALKALINE PHOSPHATASE 94 IU/L (46-116); ANION GAP 7 (8-16); ASPARTATE AMINO TRANSFERASE 22 U/L (10-37); BILIRUBIN,TOTAL 0.4 MG/DL (0.1-1.0); BLOOD UREA NITROGEN 32 MG/DL (7-18); BUN/CREATININE RATIO 20.9 (10.0-20.0); CALCIUM 9.7 MG/DL (8.5-10.1); CHLORIDE 104 MMOL/L (99-107); CREATININE 1.53 MG/DL (0.40-0.90); GLUCOSE 169 MG/DL (70-104); POTASSIUM 4.3 MMOL/L (3.5-5.1); SODIUM 140 MMOL/L (135-145); TOTAL CARBON DIOXIDE 29.1 MMOL/L (24-32); TOTAL PROTEIN 7.4 G/DL (6.4-8.2); eGFR 33 ML/MIN
[2022-07-26 13:03] LABS: MAGNESIUM 2.4 MG/DL (1.5-2.4)
[2022-07-26 13:23] VITALS: BP 124/73
== END 2022-07-26 15:26 | disposition home or self-care (01) ==
LOC: ER 12:22
DX: I20.9 Angina pectoris, unspecified (principal); I11.0 Hypertensive heart disease with heart failure; E78.00 Pure hypercholesterolemia, unspecified; K21.9 Gastro-esophageal reflux disease without esophagitis; E07.9 Disorder of thyroid, unspecified; G89.29 Other chronic pain; M54.9 Dorsalgia, unspecified; N18.9 Chronic kidney disease, unspecified
CPT/HCPCS: 36415; 71045; 80053; 83735; 83880; 84484; 85025; 93005; 99285

== ENCOUNTER 2022-09-08 11:32 | Emergency (ER) | payer MEDICARE ==
[~2022-09-08] VITALS: Ht 154.9 cm; Wt 63.0 kg
[2022-09-08 11:35] VITALS: BP 155/91
[2022-09-08] MEDS ORDERED: AZI25OT PO (13:10)
[2022-09-08] MEDS ORDERED: ALBU8HFA PO (13:10)
[2022-09-08] MEDS ORDERED: PRED20TA PO (13:10)
== END 2022-09-08 13:19 | disposition home or self-care (01) ==
LOC: ER 11:33
DX: J98.01 Acute bronchospasm (principal); I11.9 Hypertensive heart disease without heart failure; I10 Essential (primary) hypertension; I12.0 Hypertensive chronic kidney disease with stage 5 chronic kidney disease or end stage renal disease; E11.22 Type 2 diabetes mellitus with diabetic chronic kidney disease; N18.6 End stage renal disease; Z88.1 Allergy status to other antibiotic agents; Z88.0 Allergy status to penicillin; Z88.8 Allergy status to other drugs, medicaments and biological substances; Z79.899 Other long term (current) drug therapy; Z79.1 Long term (current) use of non-steroidal anti-inflammatories (NSAID)
CPT/HCPCS: 71045; 99283

== ENCOUNTER 2022-10-13 06:19 | Emergency (ER) | payer MEDICARE ==
[~2022-10-13] VITALS: Ht 154.9 cm; Wt 58.4 kg
[~2022-10-13 06:19] MED LIST changes: +ALBU8HFA PO; +AZI25OT PO; +PRED20TA PO
[2022-10-13] MEDS ORDERED: morphine 4 MG/ML inj SYRINge IV ONE (06:55)
[2022-10-13] MEDS ORDERED: ondansetron/PF 4mg/2ml inj IV ONE (06:55)
[2022-10-13] MEDS ORDERED: iohexol 300mg/ml 100ml inj. ONE (06:58)
[2022-10-13] MEDS ORDERED: normal saline 1000ML IV soln IVB ONE (07:00)
[2022-10-13 07:25] LABS: BASOPHILS % (AUTO) 0.4 % (0-1); EOSINOPHILS % (AUTO) 0.1 % (0-6); HEMATOCRIT 50.2 % (35.0-45.0); HEMOGLOBIN 16.6 g/dl (12.0-16.0); LYMPHOCYTES # (AUTO) 1.2 X10'3 (1.1-4.8); LYMPHOCYTES % (AUTO) 11.1 % (21-51); MEAN CORPUSCULAR HEMOGLOBIN 32.1 PG (27.0-31.0); MEAN CORPUSCULAR VOLUME 97.1 FL (78-98); MEAN PLATELET VOLUME 9.1 FL (7.4-10.4); MONOCYTES # (AUTO) 0.7 X10'3 (0-0.9); MONOCYTES % (AUTO) 6.3 % (2-12); NEUTROPHILS % (AUTO) 82.1 % (42-75); PLATELET COUNT 205 X10'3 (140-440); RED BLOOD COUNT 5.17 X10'6 (4.20-5.60); RED CELL DISTRIBUTION WIDTH 14.8 % (11.5-14.5); WHITE BLOOD COUNT 10.9 X10'3 (4.5-11.0)
[2022-10-13 07:29] LABS: ALANINE AMINOTRANSFERASE 30 U/L (12-78); ALBUMIN 4.3 G/DL (3.4-5.0); ALBUMIN/GLOBULIN RATIO 1.3 (1.1-1.5); ALKALINE PHOSPHATASE 97 IU/L (46-116); ANION GAP 12 (8-16); ASPARTATE AMINO TRANSFERASE 26 U/L (10-37); BILIRUBIN,TOTAL 0.5 MG/DL (0.1-1.0); BLOOD UREA NITROGEN 23 MG/DL (7-18); BUN/CREATININE RATIO 15.9 (10.0-20.0); CALCIUM 9.9 MG/DL (8.5-10.1); CHLORIDE 102 MMOL/L (99-107); CREATININE 1.45 MG/DL (0.40-0.90); GLUCOSE 207 MG/DL (70-104); LIPASE 178 U/L (73-393); POTASSIUM 3.9 MMOL/L (3.5-5.1); SODIUM 140 MMOL/L (135-145); TOTAL CARBON DIOXIDE 25.9 MMOL/L (24-32); TOTAL PROTEIN 7.7 G/DL (6.4-8.2); eGFR 35 ML/MIN
[2022-10-13 08:10] VITALS: BP 168/89
[2022-10-13] MEDS ORDERED: DICY10CA88 PO (09:52)
[2022-10-13] MEDS ORDERED: HYDR-3965 PO (09:52)
[2022-10-13] MEDS ORDERED: POLY17PO10 PO (09:52)
--- NOTE | 2022-10-13 10:19 | NUR ---
requesting Rx for Bentyl and Miralax sent over to [facility] pharmacy at [address] Patien and stated that they will just follow up with [facility] pharmacy on Saturday as it closed today and that patient will be okay to wait till Saturday for [place].
== END 2022-10-13 10:25 | disposition home or self-care (01) ==
LOC: ER 06:20
DX: K62.5 Hemorrhage of anus and rectum (principal); R11.2 Nausea with vomiting, unspecified; R19.7 Diarrhea, unspecified; R55 Syncope and collapse; E78.00 Pure hypercholesterolemia, unspecified; I13.0 Hypertensive heart and chronic kidney disease with heart failure and stage 1 through stage 4 chronic kidney disease, or unspecified chronic kidney disease; E13.22 Other specified diabetes mellitus with diabetic chronic kidney disease; N18.9 Chronic kidney disease, unspecified; K21.9 Gastro-esophageal reflux disease without esophagitis; G89.29 Other chronic pain; Z88.0 Allergy status to penicillin; Z88.1 Allergy status to other antibiotic agents; Z88.8 Allergy status to other drugs, medicaments and biological substances; Z91.018 Allergy to other foods
CPT/HCPCS: 36415; 74177; 80053; 83690; 85025; 86885; 86900; 86901; 93005; 96361; 96374; 96375; 99285; J2270; J2405; J3490; J7030; Q9967

== ENCOUNTER 2023-03-07 18:50 | Inpatient (IN) | payer MEDICARE ==
[~2023-03-07] VITALS: Ht 154.9 cm; Wt 63.6 kg
[~2023-03-07 18:50] MED LIST changes: -ALBU8HFA PO; -AZI25OT PO; -DAPA10TA; -FEXO-271 PO; +HYDR-3965 PO; -ISOS30TA84 PO; +ISOS30TA9 PO; -METF-900 PO; +PANT40TA54 PO; +POLY119P2 PO; -PRED20TA PO
[2023-03-07 19:04] LABS: BASOPHILS % (AUTO) 0.3 % (0-1); EOSINOPHILS # (AUTO) 0.3 X10'3 (0-0.9); EOSINOPHILS % (AUTO) 3.8 % (0-6); HEMATOCRIT 43.1 % (35.0-45.0); HEMOGLOBIN 14.1 g/dl (12.0-16.0); LYMPHOCYTES # (AUTO) 2.3 X10'3 (1.1-4.8); LYMPHOCYTES % (AUTO) 33.4 % (21-51); MEAN CORPUSCULAR HEMOGLOBIN 31.9 PG (27.0-31.0); MEAN CORPUSCULAR HGB CONC 32.8 g/dL (33.0-36.5); MEAN CORPUSCULAR VOLUME 97.4 FL (78-98); MEAN PLATELET VOLUME 9.5 FL (7.4-10.4); MONOCYTES # (AUTO) 0.9 X10'3 (0-0.9); MONOCYTES % (AUTO) 12.4 % (2-12); NEUTROPHILS # (AUTO) 3.4 X10'3 (1.8-7.7); NEUTROPHILS % (AUTO) 50.1 % (42-75); PLATELET COUNT 189 X10'3 (140-440); RED BLOOD COUNT 4.43 X10'6 (4.20-5.60); RED CELL DISTRIBUTION WIDTH 15.1 % (11.5-14.5); WHITE BLOOD COUNT 6.9 X10'3 (4.5-11.0)
[2023-03-07 19:18] LABS: ALANINE AMINOTRANSFERASE 24 U/L (12-78); ALBUMIN 3.7 G/DL (3.4-5.0); ALBUMIN/GLOBULIN RATIO 1.2 (1.1-1.5); ALKALINE PHOSPHATASE 119 IU/L (46-116); ANION GAP 6 (8-16); ASPARTATE AMINO TRANSFERASE 15 U/L (10-37); BILIRUBIN,TOTAL 0.2 MG/DL (0.1-1.0); BLOOD UREA NITROGEN 28 MG/DL (7-18); BUN/CREATININE RATIO 16.1 (10.0-20.0); CALCIUM 8.9 MG/DL (8.5-10.1); CHLORIDE 102 MMOL/L (99-107); CREATININE 1.74 MG/DL (0.40-0.90); POTASSIUM 3.9 MMOL/L (3.5-5.1); SODIUM 137 MMOL/L (135-145); TOTAL CARBON DIOXIDE 29.1 MMOL/L (24-32); TOTAL PROTEIN 6.7 G/DL (6.4-8.2); eGFR 28 ML/MIN
[2023-03-07 19:25] LABS: PRO BRAIN NATRIURETIC PEPTIDE 233 PG/ML (0-450)
[2023-03-07 19:35] LABS: GLUCOSE 407 MG/DL (70-104)
[2023-03-07] MEDS ORDERED: temazepam 15mg capsule PO PRN (21:00)
[2023-03-07] MEDS ORDERED: diphenhydrAMINE 25mg capsule PO PRN (23:00)
[2023-03-07] MEDS ORDERED: ondansetron/PF 4mg/2ml inj IV PRN (23:00)
[2023-03-07] MEDS ORDERED: HYDROcodone/acetaminophen 10/325mg tab PO PRN (23:00)
[2023-03-07] MEDS ORDERED: magnesium hydroxide 30ml (MOM) UD suspension PO PRN (23:00)
[2023-03-07] MEDS ORDERED: HYDROcodone/acetaminophen 5mg/325mg tablet PO PRN (23:00)
[2023-03-07] MEDS ORDERED: normal saline 1000ml 1,000 ML IV SCH (23:00)
[2023-03-07] MEDS ORDERED: acetaminophen 325mg tablet PO PRN ×2 (23:00)
[2023-03-07] MEDS ORDERED: diphenhydrAMINE 50 mg/ml inj IV PRN (23:00)
[2023-03-07] MEDS ORDERED: acetaminophen 650mg rectal suppository RC PRN (23:00)
[2023-03-07] MEDS ORDERED: ondansetron 4mg rapidly disintigrating tab PO PRN (23:00)
[2023-03-07] MEDS ORDERED: morphine 2 MG/ML inj. syringe IV PRN ×2 (23:00)
[2023-03-07] MEDS ORDERED: mag hydrox/Alum hydrox/simeth 30ml oral suspension PO PRN (23:00)
[2023-03-07] MEDS ORDERED: bisacodyl 10mg suppository rectal RC PRN (23:00)
[2023-03-07] MEDS ORDERED: insulin Lispro (HumaLOG) vial - multi-dose SQ SCH (23:05)
[2023-03-07] MEDS ORDERED: MESSAGE TO PHARMACY PO ONE (23:05)
[2023-03-07] MEDS ORDERED: dextrose 50%-water 50ml dispensing syringe IV PRN ×2 (23:05)
[2023-03-07] MEDS ORDERED: glucagon, human recombinant 1mg kit SUBCUT PRN (23:05)
[2023-03-07] MEDS ORDERED: regadenoson 0.4mg/5ml syringe IV PRN (23:05)
[2023-03-07] MEDS ORDERED: aminophylline 250mg/10ml inj. IV PRN (23:05)
[2023-03-07] MEDS ORDERED: metoprolol tartrate 1mg/ml inj IV PRN (23:05)
[2023-03-07] MEDS ORDERED: nitroGLYCERIN 0.4mg SUBLingual tab SL PRN (23:05)
[2023-03-07] MEDS ORDERED: DEXTROSE 15 GM of carb/4 tabs (each vial/BOTTLE has 4 tablets) PO PRN ×2 (23:05)
[2023-03-07 23:21] LABS: HEMOGLOBIN A1C 8.1 % (4.5-6.2)
[2023-03-07 23:22] LABS: MAGNESIUM 2.3 MG/DL (1.5-2.4); PHOSPHORUS 4.4 MG/DL (2.3-4.5)
[2023-03-08 00:06] LABS: APTT 26 SECONDS (22-32); INR 0.9 INR; PROTHROMBIN TIME 10.2 SECONDS (9.0-12.0)
[2023-03-08 06:49] VITALS: BP 146/70; PULSE 61; RESP 17; TEMP 97.9; O2SAT 97
[2023-03-08 06:59] LABS: BILIRUBIN,URINE NEGATIVE (Neg); CLARITY,URINE CLEAR (Clear); COLOR,URINE YELLOW (Yellow); GLUCOSE, URINE >=1000 mg/dl (Neg); KETONES,URINE NEGATIVE (Neg); LEUKOCYTE ESTERASE ,URINE NEGATIVE (Neg); NITRITES, URINE NEGATIVE (Neg); OCCULT BLOOD,URINE TRACE-INTACT (Neg); PROTEIN,URINE NEGATIVE (Neg); UROBILINOGEN,URINE 0.2 E.U/dL (0.2-1.0)
[2023-03-08 07:05] LABS: UA COLLECTION TYPE CLN CATCH MIDSTREAM
[2023-03-08 07:07] LABS: BACTERIA,URINE NONE SEEN /HPF (Neg); MUCUS STRANDS NONE SEEN /LPF (Neg); RBC,URINE 0-2 /HPF (0-2); SQUAMOUS EPITHELIAL CELL,UR NONE SEEN /LPF (FEW); WBC,URINE 0-4 /HPF (0-4)
[2023-03-08] MEDS ORDERED: docusate sod 100mg capsule PO SCH (08:00)
[2023-03-08] MEDS ORDERED: heparin, porcine 5000 units/ml vial SQ SCH (08:00)
[2023-03-08] MEDS ORDERED: normal saline 1000ml 1,000 ML IV SCH (08:20)
[2023-03-08 08:32] LABS: BASOPHILS % (AUTO) 0.4 % (0-1); EOSINOPHILS # (AUTO) 0.2 X10'3 (0-0.9); EOSINOPHILS % (AUTO) 3.5 % (0-6); HEMATOCRIT 45.5 % (35.0-45.0); HEMOGLOBIN 14.9 g/dl (12.0-16.0); LYMPHOCYTES # (AUTO) 2.1 X10'3 (1.1-4.8); MEAN CORPUSCULAR HEMOGLOBIN 31.8 PG (27.0-31.0); MEAN CORPUSCULAR HGB CONC 32.8 g/dL (33.0-36.5); MEAN CORPUSCULAR VOLUME 96.9 FL (78-98); MEAN PLATELET VOLUME 9.3 FL (7.4-10.4); MONOCYTES # (AUTO) 0.8 X10'3 (0-0.9); MONOCYTES % (AUTO) 11.5 % (2-12); NEUTROPHILS # (AUTO) 3.8 X10'3 (1.8-7.7); NEUTROPHILS % (AUTO) 54.6 % (42-75); PLATELET COUNT 166 X10'3 (140-440); RED BLOOD COUNT 4.69 X10'6 (4.20-5.60); RED CELL DISTRIBUTION WIDTH 15.2 % (11.5-14.5); WHITE BLOOD COUNT 6.9 X10'3 (4.5-11.0)
[2023-03-08 08:57] LABS: ALANINE AMINOTRANSFERASE 23 U/L (12-78); ALBUMIN 3.6 G/DL (3.4-5.0); ALBUMIN/GLOBULIN RATIO 1.2 (1.1-1.5); ALKALINE PHOSPHATASE 89 IU/L (46-116); ANION GAP 7 (8-16); ASPARTATE AMINO TRANSFERASE 16 U/L (10-37); BILIRUBIN,TOTAL 0.3 MG/DL (0.1-1.0); BLOOD UREA NITROGEN 23 MG/DL (7-18); BUN/CREATININE RATIO 16.4 (10.0-20.0); CALCIUM 9.3 MG/DL (8.5-10.1); CHLORIDE 107 MMOL/L (99-107); CHOL/HDL RATIO 2.8 (0.00-4.99); CHOLESTEROL 131 MG/DL (0-200); GLUCOSE 171 MG/DL (70-104); HDL CHOLESTEROL 46 MG/DL (35-60); LDL CHOLESTEROL 60 MG/DL (50-100); POTASSIUM 3.9 MMOL/L (3.5-5.1); SODIUM 141 MMOL/L (135-145); TOTAL CARBON DIOXIDE 26.6 MMOL/L (24-32); TOTAL PROTEIN 6.7 G/DL (6.4-8.2); TRIGLYCERIDES 159 MG/DL (20-135); eCRCL 24 ML/MIN; eGFR 36 ML/MIN
[2023-03-08] MEDS ORDERED: ISOS30TA9 PO (10:38)
[2023-03-08] MEDS ORDERED: insulin glargine (Lantus) pen - multi-dose SQ SCH (21:00)
== END 2023-03-08 20:11 | disposition home or self-care (01) | DRG 311 ==
LOC: ER 18:50 → ED HOLD 23:03
PROVIDERS: ADMIT Family Medicine; ATTEND Family Medicine
DX: I20.9 Angina pectoris, unspecified (principal); N17.0 Acute kidney failure with tubular necrosis; I13.0 Hypertensive heart and chronic kidney disease with heart failure and stage 1 through stage 4 chronic kidney disease, or unspecified chronic kidney disease; R07.2 Precordial pain; E78.5 Hyperlipidemia, unspecified; E03.9 Hypothyroidism, unspecified; F32.A Depression, unspecified; M10.9 Gout, unspecified; I25.10 Atherosclerotic heart disease of native coronary artery without angina pectoris; G89.4 Chronic pain syndrome; E78.00 Pure hypercholesterolemia, unspecified; M19.90 Unspecified osteoarthritis, unspecified site; E11.51 Type 2 diabetes mellitus with diabetic peripheral angiopathy without gangrene; K58.9 Irritable bowel syndrome, unspecified; E11.22 Type 2 diabetes mellitus with diabetic chronic kidney disease; I50.9 Heart failure, unspecified; N18.9 Chronic kidney disease, unspecified; K21.9 Gastro-esophageal reflux disease without esophagitis; Z95.5 Presence of coronary angioplasty implant and graft; Z86.718 Personal history of other venous thrombosis and embolism; Z87.11 Personal history of peptic ulcer disease; Z90.710 Acquired absence of both cervix and uterus; Z90.49 Acquired absence of other specified parts of digestive tract; I25.2 Old myocardial infarction; Z79.891 Long term (current) use of opiate analgesic; Z88.1 Allergy status to other antibiotic agents; Z88.0 Allergy status to penicillin; Z88.8 Allergy status to other drugs, medicaments and biological substances; Z91.018 Allergy to other foods; Z91.048 Other nonmedicinal substance allergy status; Z79.899 Other long term (current) drug therapy
CPT/HCPCS: 36415; 71045; 80053; 80061; 81001; 82948; 83036; 83735; 83880; 84100; 84484; 85025; 85379; 85610; 85730; 99285; G0378; J1644; J1815; J7030

== ENCOUNTER 2023-05-24 20:12 | Emergency (ER) | payer MEDICARE ==
[~2023-05-24] VITALS: Ht 154.9 cm; Wt 63.6 kg
[2023-05-24 20:17] VITALS: BP 142/85; PULSE 67; RESP 18; TEMP 98.1; O2SAT 95
[2023-05-24 20:39] LABS: BASOPHILS # (AUTO) 0.1 X10'3 (0-0.2); BASOPHILS % (AUTO) 0.6 % (0-1); EOSINOPHILS # (AUTO) 0.3 X10'3 (0-0.9); EOSINOPHILS % (AUTO) 3.5 % (0-6); HEMATOCRIT 44.6 % (35.0-45.0); HEMOGLOBIN 14.8 g/dl (12.0-16.0); LYMPHOCYTES # (AUTO) 3.1 X10'3 (1.1-4.8); LYMPHOCYTES % (AUTO) 33.7 % (21-51); MEAN CORPUSCULAR HEMOGLOBIN 32.4 PG (27.0-31.0); MEAN CORPUSCULAR HGB CONC 33.2 g/dL (33.0-36.5); MEAN CORPUSCULAR VOLUME 97.6 FL (78-98); MEAN PLATELET VOLUME 9.1 FL (7.4-10.4); MONOCYTES # (AUTO) 0.9 X10'3 (0-0.9); MONOCYTES % (AUTO) 9.9 % (2-12); NEUTROPHILS # (AUTO) 4.9 X10'3 (1.8-7.7); NEUTROPHILS % (AUTO) 52.3 % (42-75); PLATELET COUNT 206 X10'3 (140-440); RED BLOOD COUNT 4.57 X10'6 (4.20-5.60); WHITE BLOOD COUNT 9.3 X10'3 (4.5-11.0)
[2023-05-24 21:05] LABS: ALBUMIN 4.1 G/DL (3.4-5.0); ANION GAP 10 (8-16); BILIRUBIN,TOTAL 0.3 MG/DL (0.1-1.0); BLOOD UREA NITROGEN 34 MG/DL (7-18); BUN/CREATININE RATIO 21.8 (10.0-20.0); CALCIUM 9.8 MG/DL (8.5-10.1); CHLORIDE 101 MMOL/L (99-107); CREATININE 1.56 MG/DL (0.40-0.90); GLUCOSE 244 MG/DL (70-104); POTASSIUM 4.1 MMOL/L (3.5-5.1); SODIUM 140 MMOL/L (135-145); TOTAL CARBON DIOXIDE 29.1 MMOL/L (24-32); TOTAL PROTEIN 7.8 G/DL (6.4-8.2); eCRCL 22 ML/MIN; eGFR 32 ML/MIN
[2023-05-24 21:06] LABS: ALANINE AMINOTRANSFERASE 30 U/L (12-78); ALBUMIN/GLOBULIN RATIO 1.1 (1.1-1.5); ALKALINE PHOSPHATASE 108 IU/L (46-116); ASPARTATE AMINO TRANSFERASE 18 U/L (10-37)
[2023-05-24 21:11] LABS: PRO BRAIN NATRIURETIC PEPTIDE 199 PG/ML (0-450)
== END 2023-05-24 22:31 | disposition home or self-care (01) ==
LOC: ER 20:12
DX: R07.9 Chest pain, unspecified (principal); I11.0 Hypertensive heart disease with heart failure
CPT/HCPCS: 36415; 71045; 80053; 83880; 84484; 85025; 93005; 99285

== ENCOUNTER 2023-06-30 14:20 | Emergency (ER) | payer MEDICARE ==
[~2023-06-30] VITALS: Ht 154.9 cm; Wt 64.1 kg
[2023-06-30] MEDS: ondansetron 4mg rapidly disintigrating tab PO ONE (15:56)
[2023-06-30] MEDS: cyclobenzaprine 10mg tablet PO ONE (15:56)
[2023-06-30] MEDS: HYDROcodone/acetaminophen 5mg/325mg tablet PO ONE (15:56)
[2023-06-30] MEDS ORDERED: CYCL-1 PO (16:45)
[2023-06-30] MEDS ORDERED: LIDO700A32 TOP (16:45)
[2023-06-30 17:06] VITALS: BP 79/51; PULSE 81; RESP 16; TEMP 97.7; O2SAT 99
== END 2023-06-30 17:07 | disposition home or self-care (01) ==
LOC: ER 14:20
DX: S39.012A Strain of muscle, fascia and tendon of lower back, initial encounter (principal); E78.00 Pure hypercholesterolemia, unspecified; I12.9 Hypertensive chronic kidney disease with stage 1 through stage 4 chronic kidney disease, or unspecified chronic kidney disease; E11.22 Type 2 diabetes mellitus with diabetic chronic kidney disease; N18.9 Chronic kidney disease, unspecified; K21.9 Gastro-esophageal reflux disease without esophagitis; Z88.0 Allergy status to penicillin; Z88.1 Allergy status to other antibiotic agents; Z88.8 Allergy status to other drugs, medicaments and biological substances; Z91.018 Allergy to other foods; Z79.899 Other long term (current) drug therapy; Z79.82 Long term (current) use of aspirin; Z90.710 Acquired absence of both cervix and uterus; X58.XXXA Exposure to other specified factors, initial encounter; Y93.89 Activity, other specified; Y92.89 Other specified places as the place of occurrence of the external cause; Y99.8 Other external cause status
CPT/HCPCS: 72110; 99284

== ENCOUNTER 2024-03-30 11:17 | Emergency (ER) | payer MEDICARE ==
[~2024-03-30] VITALS: Ht 154.9 cm; Wt 62.0 kg
[~2024-03-30 11:17] MED LIST changes: +CYCL-1 PO; +LIDO700A32 TOP
[2024-03-30 11:52] LABS: BASOPHILS % (AUTO) 0.6 % (0-1); EOSINOPHILS # (AUTO) 0.3 X10'3 (0-0.9); EOSINOPHILS % (AUTO) 3.2 % (0-6); HEMOGLOBIN 14.3 g/dl (12.0-16.0); LYMPHOCYTES % (AUTO) 24.6 % (21-51); MEAN CORPUSCULAR HEMOGLOBIN 32.6 PG (27.0-31.0); MEAN CORPUSCULAR HGB CONC 33.3 g/dL (33.0-36.5); MEAN CORPUSCULAR VOLUME 97.9 FL (78-98); MEAN PLATELET VOLUME 8.9 FL (7.4-10.4); MONOCYTES # (AUTO) 0.7 X10'3 (0-0.9); MONOCYTES % (AUTO) 7.9 % (2-12); NEUTROPHILS # (AUTO) 5.3 X10'3 (1.8-7.7); NEUTROPHILS % (AUTO) 63.7 % (42-75); PLATELET COUNT 221 X10'3 (140-440); RED BLOOD COUNT 4.39 X10'6 (4.20-5.60); RED CELL DISTRIBUTION WIDTH 14.8 % (11.5-14.5); WHITE BLOOD COUNT 8.2 X10'3 (4.5-11.0)
[2024-03-30 11:56] LABS: ALANINE AMINOTRANSFERASE 29 U/L (12-78); ALBUMIN 4.1 G/DL (3.4-5.0); ALBUMIN/GLOBULIN RATIO 1.1 (1.1-1.5); ALKALINE PHOSPHATASE 75 IU/L (46-116); ANION GAP 6 (8-16); ASPARTATE AMINO TRANSFERASE 22 U/L (10-37); BILIRUBIN,TOTAL 0.5 MG/DL (0.1-1.0); BLOOD UREA NITROGEN 25 MG/DL (7-18); BUN/CREATININE RATIO 19.2 (10.0-20.0); CALCIUM 9.8 MG/DL (8.5-10.1); CHLORIDE 102 MMOL/L (99-107); GLUCOSE 212 MG/DL (70-104); POTASSIUM 4.6 MMOL/L (3.5-5.1); SODIUM 136 MMOL/L (135-145); TOTAL CARBON DIOXIDE 28.2 MMOL/L (24-32); TOTAL PROTEIN 7.8 G/DL (6.4-8.2); eCRCL 26 ML/MIN; eGFR 39 ML/MIN
[2024-03-30 12:04] LABS: PRO BRAIN NATRIURETIC PEPTIDE 366 PG/ML (0-450)
[2024-03-30] MEDS: acetaminophen 325mg tablet PO ONE (13:57)
[2024-03-30 17:13] VITALS: BP 159/80; PULSE 63; RESP 16; TEMP 98; O2SAT 98
== END 2024-03-30 17:14 | disposition home or self-care (01) ==
LOC: ER 11:18
DX: R07.89 Other chest pain (principal); I25.10 Atherosclerotic heart disease of native coronary artery without angina pectoris; E78.00 Pure hypercholesterolemia, unspecified; I12.9 Hypertensive chronic kidney disease with stage 1 through stage 4 chronic kidney disease, or unspecified chronic kidney disease; E11.22 Type 2 diabetes mellitus with diabetic chronic kidney disease; K21.9 Gastro-esophageal reflux disease without esophagitis; N18.9 Chronic kidney disease, unspecified; M19.90 Unspecified osteoarthritis, unspecified site; I25.2 Old myocardial infarction; G89.29 Other chronic pain; M54.9 Dorsalgia, unspecified; E07.9 Disorder of thyroid, unspecified; Z90.49 Acquired absence of other specified parts of digestive tract; Z90.710 Acquired absence of both cervix and uterus; Z98.890 Other specified postprocedural states; Z88.0 Allergy status to penicillin; Z86.718 Personal history of other venous thrombosis and embolism; Z88.1 Allergy status to other antibiotic agents; Z88.5 Allergy status to narcotic agent; Z91.018 Allergy to other foods; Z79.82 Long term (current) use of aspirin; Z79.899 Other long term (current) drug therapy
CPT/HCPCS: 36415; 71045; 80053; 83880; 84484; 85025; 93005; 99285

== ENCOUNTER 2024-09-20 10:51 | Inpatient (IN) | payer MEDICARE ==
[~2024-09-20] VITALS: Ht 154.9 cm; Wt 62.7 kg
[~2024-09-20 10:51] MED LIST changes: +CELE-193 PO; -CYCL-1 PO; +FEXO-271 PO; +LIDO-52 TOP; -LIDO700A32 TOP; +TIZA-205 PO
[2024-09-20 11:23] LABS: CLARITY,URINE BLOODY (Clear); COLOR,URINE RED (Yellow); UA COLLECTION TYPE CLN CATCH MIDSTREAM
--- NOTE | 2024-09-20 11:23 | Physician Documentation ---
History of Present Illness ~ Chief Complaint: Blood in Urine Stated Complaint: URINATING BLOOD Time Seen by MD: 11:23 Primary Medical Doctor: DR SCAR SHARMA HPI 79-year-old female presents to the emergency department with report of bright red blood and clots in the urine. She also endorses lower abdominal and bladder pain. She denies any chills or fever. She denies any nausea, vomiting, diarrhea, black or bloody stools. She does note that she recently had a loop recorder placed. Her freight coordinator is Dr. Rivera. She denies any chest pain or shortness of breath at the time of my evaluation. She reports that she has never had bloody urine such as this in the past. She denies any flank pain. No history of kidney stones. Medication Reconciliation Allergies: Coded Allergies: levofloxacin (Verified Allergy, Intermediate, 09/20/24) Evans And Derivatives (Unverified Allergy, Unknown, 09/20/24) Penicillins (Verified Allergy, Unknown, 09/20/24) adhesive tape (Unverified Allergy, Unknown, 09/20/24) diltiazem (Verified Allergy, Unknown, 09/20/24) pineapple (Unverified Adverse Reaction, Intermediate, " BLISTERS ORAL CAVITY ", 09/20/24) Uncoded Allergies: CITRUS (Allergy, Intermediate, Mouth ulcerations, 02/10/12) Scheduled Allopurinol (Allopurinol), 300 MG PO DAILY, (Reported) Aspirin (Ecotrin*), 1 TAB PO HS, (Reported) Celecoxib* (Celebrex*), 100 MG PO QPM, (Reported) Cyanocobalamin* (Vitamin B-12*), 1 TAB PO DAILY, (Reported) Escitalopram Oxalate (Escitalopram Oxalate), 1 TAB DAILY, (Reported) Famotidine (Famotidine), 1 TAB PO Q12H, (Reported) Fexofenadine Hcl* (Judith*), 1 TAB PO DAILY, (Reported) Isosorbide Dinitrate* (Isordil*), 1 TAB PO BID Levothyroxine Sodium* (Levoxyl*), 50 MCG PO DAILY, (Reported) Lidocaine (Lidoderm), 1 PATCH TOP DAILY Metoprolol Succinate (Metoprolol Succinate), 1 TAB PO DAILY, (Reported) Multivitamin with Folic Acid (Tab-A-Jessica Tablet), 1 TAB DAILY, (Reported) Pantoprazole Sodium (Pantoprazole Sodium), 40 MG PO DAILY Polyethylene Glycol 3350 (Miralax), 17 GM PO DAILY, (Reported) Rosuvastatin Calcium* (Crestor*), 20 MG PO HS, (Reported) Scheduled PRN Hydrocodone Bit/Acetaminophen 5/325 MG (Hilton 5/325 MG), 1 TAB PO Q6H PRN for pain, (Reported) Nitroglycerin (Nitroglycerin), 0.4 MG SL PRN PRN, (Reported) Tizanidine Hcl (Zanaflex), 4 MG PO TID PRN for muscle spasms Past Medical History Past Medical History: Coronary Artery Disease, High Cholesterol, Hypertension, Myocardial Infarction, Vascular Disease, GERD, Peptic Ulcer Disease, Chronic Kidney Disease, Hernia, Diabetes, Thyroid (unspecified), Chronic Pain, Chronic Back Pain, Deep Vein Thrombosis, Gout, Osteoarthritis Past Surgical History: abdominal surgery, angioplasty, appendectomy, cholecystectomy, hysterectomy, orthopedic surgeries, other Alcohol Use: None Drug Use: none Lives with: Spouse Lives In: Home Occupation: retired Review of Systems ROS As stated above in the HPI, otherwise all systems are reviewed and negative. Physical Exam Vital Signs: Temperature: 98.6, Source: Temporal, Heart Rate: 72, Respiratory Rate: 16, BP: 138/81, Pulse Oximetry: 96, Weight: 62.700 Oxygen Flow Rate: 0 Physical Exam General: Alert, no apparent distress. Neck: Full range of motion. Respiratory: Lungs clear, no respiratory distress. Chest: No accessory muscle use. Left chest with dressing in place reportedly at site of loop recorder. This site is [facility]. Cardiovascular: Regular rate and rhythm, no murmurs. Gastrointestinal: Soft, TTP over pelvis/bladder, nondistended. Bowels sounds present. No CVA tenderness. Extremities: Normal range of motion, no deformity. Neurologic: Oriented x4. Psychiatric: Normal mood and affect. Skin: Normal color, warm and dry. No edema, no ecchymosis. Progress Results/Orders Results/Orders Orders - MITA FAULKNER REAL ESTATE MANAGEMENT SPECIALIST CMP (09/20/24 11:23) Ultrasound Kidney Non Vasc (09/20/24 12:36) * Iv Access / Saline Lock * (09/20/24 12:36) Ceftriaxone/F4e-[id number] 1gm (Rocephin 1 (09/20/24 12:40) Normal Saline 1000ml (Sodium Chloride 10 (09/20/24 12:40) Page Hospitalist (09/20/24 12:37) MG (09/20/24 11:46) Completed Eliseo - MITA FAULKNER REAL ESTATE MANAGEMENT SPECIALIST Pt Inr (09/20/24 11:23) Cbc/Diff (09/20/24 11:23) Ceftriaxone Im Kit W/Lidocaine (Rocephin (09/20/24 12:35) Ondansetron Disint. Tablet (Zofran Odt T (09/20/24 12:35) Vital Signs 09/20/24 09/20/24 11:00 12:14 Temp 98.6 Pulse 72 Resp 16 16 B/P (MAP) 138/81 Pulse Ox 96 O2 Flow Rate 0 Laboratory Tests Test 09/20/24 11:13 09/20/24 11:46 Urine Specimen Description Cln catch midstream Urine Color Red Urine Clarity Bloody Urine pH Urine Specific [place] Urine Protein Urine Glucose (UA) Urine Ketones Urine Occult Blood Urine Nitrite Urine Bilirubin Urine Urobilinogen Urine Leukocyte Esterase Urine RBC Tntc Urine WBC 10-20 H Urine WBC Clumps Few Urine Squamous Epithelial Cells Few Urine Bacteria Few Urine Mucus None seen Urine Culture Indicated Indicated Volume Urine Centrifuged 10 ml Urine Comment See note White Blood Count 10.1 Red Blood Count 4.52 Hemoglobin 14.2 Hematocrit 43.2 Mean Corpuscular Volume 95.5 Mean Corpuscular Hemoglobin 31.3 H Mean Corpuscular Hemoglobin Concent 32.8 L Red Cell Distribution Width 14.8 H Platelet Count 208 Mean Platelet Volume 9.4 Neutrophils (%) (Auto) 70.2 Lymphocytes (%) (Auto) 15.3 L Monocytes (%) (Auto) 9.4 Eosinophils (%) (Auto) 4.7 Basophils (%) (Auto) 0.4 Neutrophils # (Auto) 7.1 Lymphocytes # (Auto) 1.6 Monocytes # (Auto) 1.0 H Eosinophils # (Auto) 0.5 Basophils # (Auto) 0.0 CBC Comment Prothrombin Time 10.9 INR International Normalized Ratio 1.1 Coagulation Comments Sodium Level 139 Potassium Level 5.2 H Chloride Level 102 Carbon Dioxide Level 29.8 Anion Gap 7 L Blood Urea Nitrogen 26 H Creatinine 1.44 H Estimated GFR/1.73 m2 35 BUN/Creatinine Ratio 18.1 Glucose Level 205 H Calcium Level 10.0 Total Bilirubin 0.4 Aspartate Amino Transf (AST/SGOT) 19 Alanine Aminotransferase (ALT/SGPT) 21 Alkaline Phosphatase 77 Total Protein 7.4 Albumin 3.8 Globulin 3.6 Albumin/Globulin Ratio 1.1 Chemistry Comments Microbiology Date/Time Source Procedure Growth Status 09/20/24 11:33 Urine Clean Catch Midstream Urine Culture - Preliminary Culture received. Resulted Medical Decision Making Additional Comment This is an 79-year-old female who presents today due to onset of gross hematuria along with overall feeling unwell. She does appear to have a urinary tract infection. She also has evidence of NIMISHA, with worsening of her renal function atop previous evidence of CKD. Due to her advanced age and risk for progression of her illness, she would be appropriate for admission. The hospitalist has been paged. A bladder ultrasound has also been ordered. She will receive ceftriaxone 1 g IV and a L of normal saline as a bolus. Departure Time of Disposition: 13:01 Disposition: 09 ADMITTED INPATIENT Admitted to Inpatient Unit: yes, to hospitalist Impression: Primary Impression: Acute on chronic renal insufficiency Additional Impression: Hemorrhagic cystitis Referrals: NO PRIMARY CARE PROVIDER (PCP) Signature Scribe Signature: no scribe Attestation: The note accurately reflects work and decisions made by me.Mita Ku NP 09/20/24 11:31 MITA FAULKNER NP Sep 20, 2024 11:23
[2024-09-20 11:32] LABS: BACTERIA,URINE FEW /HPF (Neg); MUCUS STRANDS NONE SEEN /LPF (Neg); RBC,URINE TNTC /HPF (0-2); SQUAMOUS EPITHELIAL CELL,UR FEW /LPF (FEW); WBC CLUMPS,URINE FEW /HPF (NEGATIVE)
[2024-09-20 12:07] LABS: BASOPHILS % (AUTO) 0.4 % (0-1); EOSINOPHILS # (AUTO) 0.5 X10'3 (0-0.9); EOSINOPHILS % (AUTO) 4.7 % (0-6); HEMATOCRIT 43.2 % (35.0-45.0); HEMOGLOBIN 14.2 g/dl (12.0-16.0); LYMPHOCYTES # (AUTO) 1.6 X10'3 (1.1-4.8); LYMPHOCYTES % (AUTO) 15.3 % (21-51); MEAN CORPUSCULAR HEMOGLOBIN 31.3 PG (27.0-31.0); MEAN CORPUSCULAR HGB CONC 32.8 g/dL (33.0-36.5); MEAN CORPUSCULAR VOLUME 95.5 FL (78-98); MEAN PLATELET VOLUME 9.4 FL (7.4-10.4); MONOCYTES % (AUTO) 9.4 % (2-12); NEUTROPHILS # (AUTO) 7.1 X10'3 (1.8-7.7); NEUTROPHILS % (AUTO) 70.2 % (42-75); PLATELET COUNT 208 X10'3 (140-440); RED BLOOD COUNT 4.52 X10'6 (4.20-5.60); RED CELL DISTRIBUTION WIDTH 14.8 % (11.5-14.5); WHITE BLOOD COUNT 10.1 X10'3 (4.5-11.0)
[2024-09-20 12:18] LABS: INR 1.1 INR; PROTHROMBIN TIME 10.9 SECONDS (9.0-12.0)
[2024-09-20 12:27] LABS: ALANINE AMINOTRANSFERASE 21 U/L (12-78); ALBUMIN 3.8 G/DL (3.4-5.0); ALBUMIN/GLOBULIN RATIO 1.1 (1.1-1.5); ALKALINE PHOSPHATASE 77 IU/L (46-116); ANION GAP 7 (8-16); ASPARTATE AMINO TRANSFERASE 19 U/L (10-37); BILIRUBIN,TOTAL 0.4 MG/DL (0.1-1.0); BLOOD UREA NITROGEN 26 MG/DL (7-18); BUN/CREATININE RATIO 18.1 (10.0-20.0); CHLORIDE 102 MMOL/L (99-107); CREATININE 1.44 MG/DL (0.40-0.90); GLUCOSE 205 MG/DL (70-104); POTASSIUM 5.2 MMOL/L (3.5-5.1); SODIUM 139 MMOL/L (135-145); TOTAL CARBON DIOXIDE 29.8 MMOL/L (24-32); TOTAL PROTEIN 7.4 G/DL (6.4-8.2); eCRCL 23 ML/MIN; eGFR 35 ML/MIN
[2024-09-20] MEDS: CefTRIAXone 1000mg IM Kit (w/lidocaine diluent) IM ONE (12:35)
[2024-09-20] MEDS ORDERED: HYDROcodone/acetaminophen 10/325mg tab PO PRN (12:50)
[2024-09-20] MEDS ORDERED: magnesium sulf-water 2g/50mL 50 ML IV PRN (12:50)
[2024-09-20] MEDS ORDERED: acetaminophen 325mg tablet PO PRN (12:50)
[2024-09-20] MEDS ORDERED: magnesium sulf-water 4G/100mL 100 ML IV PRN (12:50)
[2024-09-20] MEDS ORDERED: HYDROcodone/acetaminophen 5mg/325mg tablet PO PRN (12:50)
[2024-09-20] MEDS ORDERED: magnesium hydroxide 30ml (MOM) UD suspension PO PRN (12:50)
[2024-09-20] MEDS ORDERED: mag hydrox/Alum hydrox/simeth 30ml oral suspension PO PRN (12:50)
[2024-09-20] MEDS ORDERED: ondansetron/PF 4mg/2ml inj IV PRN (12:50)
[2024-09-20] MEDS ORDERED: ondansetron 4mg rapidly disintigrating tab PO PRN (12:50)
[2024-09-20] MEDS ORDERED: potassium Cl 40MEQ/1/2NS 520ml 520 ML IV PRN (12:50)
[2024-09-20] MEDS ORDERED: potassium Cl 20 mEq SR tablet PO PRN ×2 (12:50)
--- NOTE | 2024-09-20 13:02 | HISTORY AND PHYSICAL ---
History & Physical Providers to CC ~ History of Present Illness Reason for Admit\\Complaint: Gross hematuria, UTI, hyperkalemia History of Present Illness Molly Monae is a 79-year-old female with past medical history of CAD s/p PTCA in 2012, hypertension, NIDDM, CKD stage 3b who presented to the ED with chief complaint of acute onset gross hematuria, urinary incontinence, urinary frequency/incontinence/urgency with associated symptoms of generalized weakness and pelvic pain x 1 day. Patient recently had episodes of syncope in the past couple months where she was seeing her project developer Dr. Manfred Rivera for. Patient had a loop recorder placed five days ago. Patient reports taking aspirin daily, no reported anticoagulant use. Patient denies prior CVA, GIB, or DVT/PE. Patient denies chest pain, palpitations, shortness of breath, fever, chills, weight loss. Patient is to be admitted for further workups and treatment. Allergies: Coded Allergies: levofloxacin (Verified Allergy, Intermediate, 09/20/24) Steele And Derivatives (Unverified Allergy, Unknown, 09/20/24) Penicillins (Verified Allergy, Unknown, 09/20/24) PT TOLERATING ROCEPHIN 09/2024 adhesive tape (Unverified Allergy, Unknown, 09/20/24) diltiazem (Verified Allergy, Unknown, 09/20/24) pineapple (Unverified Adverse Reaction, Intermediate, " BLISTERS ORAL CAVITY ", 09/20/24) Uncoded Allergies: CITRUS (Allergy, Intermediate, Mouth ulcerations, 02/10/12) Home Medications Home Medications Active Zanaflex (Tizanidine Hcl) 4 Mg Tablet 4 Mg PO TID PRN Lidoderm (Lidocaine) 5 % Adh..patch 1 Patch TOP DAILY 30 Days may wear up to 12 hours Isordil* (Isosorbide Dinitrate) 30 Mg Tablet 1 Tab PO BID Pantoprazole Sodium 40 Mg Tablet.dr 40 Mg PO DAILY 30 Days Reported Judith* (Fexofenadine HCl) 180 Mg Tablet 1 Tab PO DAILY Celebrex* (Celecoxib) 100 Mg Capsule 100 Mg PO QPM Miralax (Polyethylene Glycol 3350) 17 Gram/Dose Powder 17 Gm PO DAILY dissolve in water [place]ornado 5/325 MG (Acetaminophen/Hydrocodone Bitart) 5 Mg/325 Mg Tablet 1 Tab PO Q6H PRN Metoprolol Succinate 25 Mg Tab.sr.24h 1 Tab PO DAILY 30 Days Vitamin B-12* (Cyanocobalamin) 500 Mcg Tablet 1 Tab PO DAILY Tab-A-Jessica Tablet (Multivitamin with Folic Acid) 400 Mcg Tablet 1 Tab DAILY Escitalopram Oxalate 10 Mg Tablet 1 Tab DAILY Famotidine 20 Mg Tablet 1 Tab PO Q12H 30 Days Ecotrin* (Aspirin) 81 Mg Tablet.dr 1 Tab PO HS 30 Days Allopurinol 300 Mg Tablet 300 Mg PO DAILY Nitroglycerin 0.4 Mg Tab.subl 0.4 Mg SL PRN PRN Q5 MINUTES X 3 PRN FOR CHEST PAIN Crestor* (Rosuvastatin Calcium) 10 Mg Tablet 20 Mg PO HS Levoxyl* (Levothyroxine Sodium) 50 Mcg Tablet 50 Mcg PO DAILY Past Medical History Past Medical History NIDDM Hypertension CAD s/p PTCA (2011) HLD Hypothyroidism Gout Depression GERD Past Surgical History Surgical History Comment Total right knee replacement PTCA Hysterectomy Cholecystectomy Appendectomy Fusion and laminectomy of the cervical spine Past Social History Social History Comment Alcohol: Denies Tobacco: Denies Illicit drug use: Denies Living situation: Lives at home with spouse ROS ROS Other than positives in HPI, all 14 review of systems are negative Exam Vitals: Vital Signs Date Time Temp Pulse Resp B/P (MAP) Pulse Ox O2 Delivery O2 Flow Rate FiO2 09/20/24 12:14 16 09/20/24 11:00 98.6 72 96 0 General: Generalized weakness, A&Ox 3, NAD HEENT: Normocephalic, PERRLA Neck: Supple, trachea midline, no JVD Chest: Clear to auscultation bilaterally Cardiovascular: RRR, S1&S2 Abdomen: Lower left and right abdominal pain with palpation; negative rebound tenderness Extremities: No cyanosis/clubbing/or edema Central Nervous System: CN II-XII intact, no focal deficits Musculoskeletal: No paraspinal muscle tenderness, no muscle spasm Skin: Warm and intact, loop recorder implant incision closed and dressed in left chest Diagnostic Data Last Recorded Lab Results: 09/20/24 1146 09/20/24 1146 Diagnostic Data: Laboratory Tests Test 09/20/24 11:46 Prothrombin Time 10.9 SECONDS (9.0-12.0) INR International Normalized Ratio 1.1 INR Coagulation Comments Additional Plan # UTI # Gross hematuria -sx acute, denies weight loss, H/H stable on admission, follow serial hemogram, transfuse as needed for Hgb<7.0g/dL -start abx, IVF, follow urine culture # NIMISHA on CKD vs CKD 3b # Hyperkalemia 2/2 CKD -follow labs, start IVF, strict I&Os, renal US # HTN # HLD # NIDDM # CAD s/p PTCA -follow A1c, lipid panel, pending med rec # Syncope # Recent hx of syncope, presence of loop recorder (Dr. Darren Rivera) -TTE (05/18/24) LVEF 80-85%, RVSP 30mmHg, no significant VHD -admit on tele, orthostatic vitals, EKG ordered, US carotid shows 50-69% stenosis of bilateral internal carotid arteries DVT/VTE prophylaxis: SCDs Diet: Renal Code Status: Full code I spent a total of 35 minutes discussing Advanced Care Planning measures with the patient. Advance care planning: Discussed with patient the importance of advance care planning in case of emergent situation. We discussed various resuscitative measures/ ACP with the patient at the time of admission. Patient voiced understanding and patient has decided on a full code status. Date of Service: Sep 20, 2024 Billing Provider: DEMI RODRIGUEZ Common Visit Codes: 16029-YEOMCIO INP/OBS CARE (HIGH) Secondary Visit Codes: 98097-JEQQVEVP CARE PLAN 30 MINUTES DEMI RODRIGUEZ Sep 20, 2024 13:02
[2024-09-20] MEDS: normal saline 1000ml 1,000 ML IV SCH (13:05)
[2024-09-20 13:19] LABS: HEMOGLOBIN A1C 8.7 % (4.5-6.2)
[2024-09-20 13:26] LABS: CHOL/HDL RATIO 2.6 (0.00-4.99); CHOLESTEROL 116 MG/DL (0-200); HDL CHOLESTEROL 45 MG/DL (35-60); LDL CHOLESTEROL 53 MG/DL (50-100); MAGNESIUM 2.5 MG/DL (1.5-2.4); THYROID STIMULATING HORMONE 2.39 ulU/ml (0.34-4.50); TRIGLYCERIDES 120 MG/DL (20-135); URIC ACID 4.3 MG/DL (2.5-6.2)
[2024-09-20] MEDS: ondansetron 4mg rapidly disintigrating tab PO ONE (13:47)
[2024-09-20] MEDS: normal saline 1000ml 1,000 ML IV ONE (13:48)
[2024-09-20] MEDS: CefTRIAXone/D5W-Rocephin 1gm 50 ML IV ONE (13:48)
--- NOTE | 2024-09-20 15:09 | RADIOLOGY REPORT ---
CLINICAL INFORMATION: 79 years old, Female; hematuria. TECHNIQUE: Grayscale sonographic imaging of the kidneys and bladder was performed, assisted by color Doppler technique. COMPARISON: CT of the abdomen and pelvis dated 10/13/2022. FINDINGS: Limited examination due to patient's clinical condition and bowel gas. Unable to adjust po sition of the patient. The right kidney measures 10.3 cm in length. No hydronephrosis. Cortical ech ogenicity and cortical thickness appear grossly within normal limits given the limitations of the exa m. There are cysts in the right kidney measuring up to 3.2 cm, 3.5 cm, and 3.1 cm, respectively quest ionable thin septations 2 of the cysts. The left kidney measures 9.4 cm in length. No hydronephrosis. Unremarkable cortical thickness and e chogenicity. Left renal cyst measures up to 3.4 cm. Prevoid bladder volume measured 79 mL. Bilateral ureteral jets demonstrated. No bladder wall thickeni ng or mass visualized. Limited evaluation of the bladder due to underdistention. IMPRESSION: 1. Limited examination for the reasons described above. 2. No hydronephrosis visualized. 3. Bilateral renal cysts. 4. Underdistended bladder, suboptimally evaluated. No gross abnormality identified.
--- NOTE | 2024-09-20 16:04 | VASCULAR REPORT ---
Carotid Duplex Clinical History: Syncope Comparison: None Technique: Duplex Doppler evaluation of the extracranial carotid and vertebral arteries including color Doppler and spectral/pulsed waveform analysis was performed. Findings: RIGHT SIDE: The peak systolic velocities are 113 cm/s in the CCA, 134 cm/s in the ICA. The ICA/CCA ratio is 2.03 . The external carotid artery is patent with peak systolic velocity of 75 cm/s proximally. The subclavian artery is patent with peak systolic velocity of 104 cm/s. There is appropriate antegrade flow in the right vertebral artery. LEFT SIDE: The peak systolic velocities are 73 cm/s in the CCA, 134 cm/s in the ICA. The ICA/CCA ratio is 1.67. The external carotid artery is patent with peak systolic velocity of 78 cm/s proximally. The subclavian artery is patent with peak systolic velocity of 126 cm/s. There is appropriate antegrade flow in the left vertebral artery. IMPRESSION: Moderate heterogeneous irregular plaque visualized at the carotid artery bifurcation extending into t he proximal internal carotid arteries, bilaterally. 50-69% stenosis of bilateral internal carotid arteries based on peak systolic velocity criteria. Antegrade flow in bilateral vertebral arteries. Multiphasic flow in bilateral subclavian arteries. Reference: Radiology 2003; 229:340-346 Normal ICA PSV is <125 cm/sec and no plaque or intimal thickening is visible sonographically addition al criteria include ICA/CCA PSV ratio <2.0 and ICA EDV <40 cm/sec <50% ICA stenosis ICA PSV is <125 cm/sec and plaque or intimal thickening is visible sonographically additional criteria include ICA/CCA PSV ratio <2.0 and ICA EDV <40 cm/sec 50-69% ICA stenosis ICA PSV is 125-230 cm/sec and plaque is visible sonographically additional criter ia include ICA/CCA PSV ratio of 2.0-4.0 and ICA EDV of 40-100 cm/sec 70% ICA stenosis but less than near occlusion ICA PSV is >230 cm/sec and visible plaque and luminal narrowing are seen at gaxiola-scale and color Doppler ultrasound (the higher the Doppler parameters lie above the threshold of 230 cm/sec, the greater the likelihood of severe disease) additional criteria include ICA/CCA PSV ratio >4 and ICA EDV >100 cm/sec
[2024-09-20] MEDS: SODIUM ZIRCONIUM CYCLOSILICATE 10 GM POWD.PACK PO ONE ×2 (16:35→20:50)
[2024-09-20] MEDS: metoprolol succinate 25mg (24-HOUR) SR. Tablet PO ONE (16:50)
--- NOTE | 2024-09-20 16:58 | ELECTROCARDIOGRAPH REPORT ---
[facility] Test Date: 2024-09-20 Test Time: 16:56:03 Pat Name: RACH GODINEZ Department: [facility]-ED HOLD Patient ID: [facility]-[id number] Room: ORTHO [facility] Gender: F General Contractor: : [id number] Requested By: DEMI RODRIGUEZ Order Number: [id number] Reading MD: Alex Barajas Measurements Intervals [place] Rate: 68 P: 69 LA: 169 QRS: -30 QRSD: 77 T: 70 QT: 425 QTc: 453 Interpretive Statements Sinus rhythm Left axis deviation Consider anterior infarct Baseline wander in lead(s) I,II,aVR Electronically Signed On 09-20-2024 17:53:00 PDT by Alex Barajas Please click the below link to view image of tracing.
[2024-09-20] MEDS ORDERED: ADV50100 (17:17)
[2024-09-20] MEDS ORDERED: CLIN-143 PO (17:17)
[2024-09-20 17:33] VITALS: BP 137/53; PULSE 73; RESP 16; TEMP 98.1; O2SAT 94
[2024-09-20 17:57] VITALS: RESP 16; O2SAT 97
[2024-09-20 19:34] LABS: HEMOGLOBIN 13.7 g/dl (12.0-16.0); MEAN CORPUSCULAR HEMOGLOBIN 31.9 PG (27.0-31.0); MEAN CORPUSCULAR HGB CONC 33.5 g/dL (33.0-36.5); MEAN CORPUSCULAR VOLUME 95.2 FL (78-98); MEAN PLATELET VOLUME 8.8 FL (7.4-10.4); PLATELET COUNT 188 X10'3 (140-440); RED CELL DISTRIBUTION WIDTH 14.7 % (11.5-14.5); WHITE BLOOD COUNT 8.1 X10'3 (4.5-11.0)
[2024-09-20 20:00] VITALS: BP_SYST 122; BP_SYST 125; BP_SYST 129; BP_DIAS 65; BP_DIAS 67; BP_DIAS 71; PULSE 76; PULSE 83; PULSE 93; RESP 18; O2SAT 92
[2024-09-20] MEDS: docusate sod 100mg capsule PO SCH (20:00)
[2024-09-20] MEDS: atorvastatin 20mg tablet PO SCH (20:49)
[2024-09-20] MEDS: isosorbide dinitrate 30mg tablet PO SCH (20:49)
[2024-09-20] MEDS: K and/or MAG REPLACEMENT MC SCH (20:59)
[2024-09-20 22:00] VITALS: BP 137/69; PULSE 73; RESP 12; TEMP 98.3; O2SAT 92
[2024-09-21 06:00] VITALS: BP 135/67; PULSE 72; RESP 16; TEMP 96.9; O2SAT 97
[2024-09-21 06:34] LABS: BASOPHILS % (AUTO) 0.4 % (0-1); EOSINOPHILS # (AUTO) 0.5 X10'3 (0-0.9); EOSINOPHILS % (AUTO) 5.5 % (0-6); HEMATOCRIT 39.2 % (35.0-45.0); HEMOGLOBIN 12.9 g/dl (12.0-16.0); LYMPHOCYTES # (AUTO) 1.8 X10'3 (1.1-4.8); LYMPHOCYTES % (AUTO) 20.1 % (21-51); MEAN CORPUSCULAR HEMOGLOBIN 31.4 PG (27.0-31.0); MEAN PLATELET VOLUME 9.5 FL (7.4-10.4); MONOCYTES # (AUTO) 0.9 X10'3 (0-0.9); MONOCYTES % (AUTO) 10.5 % (2-12); NEUTROPHILS # (AUTO) 5.7 X10'3 (1.8-7.7); NEUTROPHILS % (AUTO) 63.5 % (42-75); PLATELET COUNT 185 X10'3 (140-440); RED BLOOD COUNT 4.12 X10'6 (4.20-5.60); RED CELL DISTRIBUTION WIDTH 14.6 % (11.5-14.5); WHITE BLOOD COUNT 8.9 X10'3 (4.5-11.0)
[2024-09-21 06:53] LABS: ALANINE AMINOTRANSFERASE 17 U/L (12-78); ALBUMIN 3.2 G/DL (3.4-5.0); ALKALINE PHOSPHATASE 71 IU/L (46-116); ANION GAP 8 (8-16); ASPARTATE AMINO TRANSFERASE 21 U/L (10-37); BILIRUBIN,TOTAL 0.3 MG/DL (0.1-1.0); BLOOD UREA NITROGEN 23 MG/DL (7-18); BUN/CREATININE RATIO 18.9 (10.0-20.0); CALCIUM 9.1 MG/DL (8.5-10.1); CHLORIDE 105 MMOL/L (99-107); CREATININE 1.22 MG/DL (0.40-0.90); GLUCOSE 138 MG/DL (70-104); MAGNESIUM 2.3 MG/DL (1.5-2.4); POTASSIUM 4.2 MMOL/L (3.5-5.1); SODIUM 141 MMOL/L (135-145); TOTAL CARBON DIOXIDE 27.9 MMOL/L (24-32); TOTAL PROTEIN 6.3 G/DL (6.4-8.2); eCRCL 27 ML/MIN; eGFR 42 ML/MIN
[2024-09-21 08:00] VITALS: BP_SYST 120; BP_SYST 121; BP_SYST 148; BP_DIAS 45; BP_DIAS 54; BP_DIAS 55; PULSE 64; PULSE 68; PULSE 69
[2024-09-21] MEDS: CefTRIAXone 2gm/D5W 50ml BAG 50 ML IV SCH (08:03)
[2024-09-21] MEDS: metoprolol succinate 25mg (24-HOUR) SR. Tablet PO SCH (08:03)
[2024-09-21] MEDS: acetaminophen 325mg tablet PO PRN (08:13)
[2024-09-21 09:12] LABS: BILIRUBIN,URINE NEGATIVE (Neg); CLARITY,URINE CLEAR (Clear); COLOR,URINE YELLOW (Yellow); GLUCOSE, URINE >=1000 mg/dl (Neg); KETONES,URINE TRACE mg/dl (Neg); LEUKOCYTE ESTERASE ,URINE NEGATIVE (Neg); NITRITES, URINE NEGATIVE (Neg); OCCULT BLOOD,URINE TRACE-INTACT (Neg); PROTEIN,URINE NEGATIVE (Neg); UROBILINOGEN,URINE 0.2 E.U/dL (0.2-1.0)
[2024-09-21 09:16] LABS: RBC,URINE 0-2 /HPF (0-2); UA COLLECTION TYPE CLN CATCH MIDSTREAM; WBC,URINE NONE SEEN /HPF (0-4)
[2024-09-21 09:17] LABS: BACTERIA,URINE NONE SEEN /HPF (Neg); MUCUS STRANDS NONE SEEN /LPF (Neg); SQUAMOUS EPITHELIAL CELL,UR FEW /LPF (FEW)
[2024-09-21 10:00] VITALS: BP 101/51; PULSE 72; RESP 15; TEMP 97.3; O2SAT 93
--- NOTE | 2024-09-21 14:12 | PROGRESS NOTE ---
Daily Progress Note Providers to CC ~ Antibiotic Timeout Antibiotic Ordered?: Yes If Yes, Indications: UTI Subjective No acute events overnight. Patient examined at bedside. No new complaints, not in acute distress. Patient denies chest pain, sob, palpitations, abdominal pain, n/v/d. Vss, labs notable for downtrending Cr on IVF. A repeat urine culture negative bacteria, trace-intact occult blood, non-bloody clear clarity. Dysuria and gross hematuria resolved. Objective Vital Signs Date Time Temp Pulse Resp B/P (MAP) Pulse Ox O2 Delivery O2 Flow Rate FiO2 09/21/24 10:00 97.3 72 15 101/51 (68) 93 Room Air 09/20/24 20:00 0.0 Result Diagram: 09/21/24 0547 09/21/24 0547 Physical Exam General: A&Ox 3, NAD HEENT: Normocephalic, PERRLA Neck: Supple, trachea midline, no JVD Chest: Clear to auscultation bilaterally Cardiovascular: RRR, S1&S2 GI: Soft and nontender Extremities: No cyanosis/clubbing/or edema REED OR WIND INSTRUMENT TUNER: CN II-XII intact, no focal deficits Musculoskeletal: No paraspinal muscle tenderness, no muscle spasm Skin: Warm and intact Coagulation Studies Laboratory Tests Test 09/20/24 11:46 Prothrombin Time 10.9 SECONDS (9.0-12.0) INR International Normalized Ratio 1.1 INR Coagulation Comments Problem\Assessment\Plan # UTI # Gross hematuria -sx acute, denies weight loss, H/H stable on admission, follow serial hemogram, transfuse as needed for Hgb<7.0g/dL -start abx, IVF, follow urine culture -09/21: Repeat urine culture negative bacteria, trace-intact occult blood, non- bloody clear clarity. Dysuria and gross hematuria resolved. # NIMISHA on CKD vs CKD 3b # Hyperkalemia 2/2 CKD -follow labs, start IVF, strict I&Os, renal US -09/21: renal US negative hydronephrosis otherwise unremarkable # HTN # HLD # NIDDM # CAD s/p PTCA -follow A1c, lipid panel, pending med rec -09/21: A1c 8.7%, LDL 53, TSH/T4 wnl, on hyper/hypoglycemic protocol, continue home levothyroxine, metoprolol, isosorbide # Syncope # Recent hx of syncope, presence of loop recorder (Dr. Darren Rivera) -TTE (05/18/24) LVEF 80-85%, RVSP 30mmHg, no significant VHD; reports 1 episode of syncope 2 months ago -admit on tele, orthostatic vitals, EKG ordered, US carotid shows 50-69% stenosis of bilateral internal carotid arteries -09/21: tele sinus in 70s, negative orthostatic DVT/VTE prophylaxis: SCDs Diet: Renal Code Status: Full code Date of Service: Sep 21, 2024 Billing Provider: DEMI RODRIGUEZ Common Visit Codes: [id number] INP/OBS CARE(HIGH) DEMI RODRIGUEZ Sep 21, 2024 14:12
[2024-09-21] MEDS ORDERED: glucagon, human recombinant 1mg kit SUBCUT PRN (14:20)
[2024-09-21] MEDS ORDERED: DEXTROSE 15 GM of carb/4 tabs (each vial/BOTTLE has 4 tablets) PO PRN ×2 (14:20)
[2024-09-21] MEDS ORDERED: dextrose 50%-water 50ml dispensing syringe IV PRN ×2 (14:20)
[2024-09-21] MEDS: INSULIN LISPRO 100 UNIT/ML INSULN.PEN MULTI-DOSE SQ SCH (17:00)
[2024-09-21 18:00] VITALS: BP 120/45; PULSE 64; RESP 16; TEMP 98; O2SAT 93
[2024-09-21 20:00] VITALS: BP_SYST 132; BP_SYST 139; BP_SYST 150; BP_DIAS 62; BP_DIAS 64; BP_DIAS 68
[2024-09-21 22:00] VITALS: BP 122/76; PULSE 67; RESP 12; TEMP 98.6; O2SAT 97
[2024-09-22 05:08] LABS: BASOPHILS % (AUTO) 0.3 % (0-1); EOSINOPHILS # (AUTO) 0.4 X10'3 (0-0.9); HEMATOCRIT 39.3 % (35.0-45.0); HEMOGLOBIN 13.2 g/dl (12.0-16.0); LYMPHOCYTES # (AUTO) 1.9 X10'3 (1.1-4.8); LYMPHOCYTES % (AUTO) 22.9 % (21-51); MEAN CORPUSCULAR HEMOGLOBIN 31.9 PG (27.0-31.0); MEAN CORPUSCULAR HGB CONC 33.6 g/dL (33.0-36.5); MEAN CORPUSCULAR VOLUME 94.9 FL (78-98); MEAN PLATELET VOLUME 9.2 FL (7.4-10.4); MONOCYTES # (AUTO) 0.9 X10'3 (0-0.9); MONOCYTES % (AUTO) 11.2 % (2-12); NEUTROPHILS % (AUTO) 60.6 % (42-75); PLATELET COUNT 181 X10'3 (140-440); RED BLOOD COUNT 4.15 X10'6 (4.20-5.60); RED CELL DISTRIBUTION WIDTH 14.4 % (11.5-14.5); WHITE BLOOD COUNT 8.3 X10'3 (4.5-11.0)
[2024-09-22 05:29] LABS: ALANINE AMINOTRANSFERASE 26 U/L (12-78); ALBUMIN 3.3 G/DL (3.4-5.0); ALKALINE PHOSPHATASE 69 IU/L (46-116); ANION GAP 9 (8-16); ASPARTATE AMINO TRANSFERASE 27 U/L (10-37); BILIRUBIN,TOTAL 0.3 MG/DL (0.1-1.0); BLOOD UREA NITROGEN 24 MG/DL (7-18); BUN/CREATININE RATIO 20.3 (10.0-20.0); CALCIUM 9.3 MG/DL (8.5-10.1); CHLORIDE 103 MMOL/L (99-107); CREATININE 1.18 MG/DL (0.40-0.90); GLUCOSE 161 MG/DL (70-104); MAGNESIUM 2.1 MG/DL (1.5-2.4); SODIUM 139 MMOL/L (135-145); TOTAL CARBON DIOXIDE 26.7 MMOL/L (24-32); TOTAL PROTEIN 6.5 G/DL (6.4-8.2); eCRCL 28 ML/MIN; eGFR 44 ML/MIN
[2024-09-22 06:54] VITALS: BP 112/64; PULSE 60; RESP 15; TEMP 97.7; O2SAT 95
[2024-09-22] MEDS: levoTHYROXINE 25mcg tablet PO SCH (07:58)
[2024-09-22 08:00] VITALS: BP_SYST 141; BP_SYST 151; BP_SYST 154; BP_DIAS 72; BP_DIAS 75; BP_DIAS 82; PULSE 72; PULSE 77; PULSE 79
[2024-09-22] MEDS: hydrALAZINE 20mg/ml inj. IV PRN (09:46)
[2024-09-22 10:00] VITALS: BP 108/58; PULSE 76; RESP 19; TEMP 98.5; O2SAT 97
[2024-09-22] MEDS ORDERED: CEPH500C2 PO (12:40)
--- NOTE | 2024-09-22 20:06 | DISCHARGE SUMMARY ---
Discharge Summary Providers to CC ~ Discharge Summary Admission Diagnosis: gross hematuria, UTI Hospital Course DATE OF ADMISSION: 09/20/2024 DATE OF DISCHARGE: 09/22/2024 Discharge Diagnosis\\Comment: UTI, hyperkalemia, NIMISHA, hypertension, [id number] diabetes mellitus, coronary artery disease, syncope, moderate stenosis of bilateral internal carotid arteries Operations\\Procedures: None Consultants: None Complications: None Condition on DC: Stable New Medications: Cephalexin Monohydrate (Cephalexin) 500 Mg Capsule 1 CAP PO Q8H, #12 CAP Continued Medications: Allopurinol (Allopurinol) 300 Mg Tablet 300 MG PO DAILY Aspirin (Ecotrin*) 81 Mg Tablet.dr 1 TAB PO HS for 30 Days, #30 TAB Cyanocobalamin* (Vitamin B-12*) 500 Mcg Tablet 1 TAB PO DAILY Escitalopram Oxalate (Escitalopram Oxalate) 10 Mg Tablet 1 TAB DAILY Famotidine (Famotidine) 20 Mg Tablet 1 TAB PO Q12H for 30 Days, #60 TAB Fexofenadine Hcl* (Judith*) 180 Mg Tablet 1 TAB PO DAILY, TAB Fluticasone/Salmeterol (Advair 100-50 Diskus) 1 Each Disk.w.dev Hydrocodone Bit/Acetaminophen 5/325 MG ([place] 5/325 MG) 5 Mg/325 Mg Tablet 1 TAB PO Q6H PRN for pain, #14 TAB Isosorbide Dinitrate* (Isordil*) 30 Mg Tablet 1 TAB PO BID for chest pain, #60 TAB Levothyroxine Sodium* (Levoxyl*) 50 Mcg Tablet 50 MCG PO DAILY Lidocaine (Lidoderm) 5 % Adh..patch 1 PATCH TOP DAILY for 30 Days, #30 PATCH 0 Refills may wear up to 12 hours Metoprolol Succinate (Metoprolol Succinate) 25 Mg Tab.sr.24h 1 TAB PO DAILY for 30 Days, #30 TAB Multivitamin with Folic Acid (Tab-A-Jessica Tablet) 400 Mcg Tablet 1 TAB DAILY Nitroglycerin (Nitroglycerin) 0.4 Mg Tab.subl 0.4 MG SL PRN PRN Q5 MINUTES X 3 PRN FOR CHEST PAIN Pantoprazole Sodium (Pantoprazole Sodium) 40 Mg Tablet.dr 40 MG PO DAILY for 30 Days, #30 TAB.SR Polyethylene Glycol 3350 (Miralax) 17 Gram/Dose Powder 17 GM PO DAILY for constipation, #255 GM 0 Refills dissolve in water Rosuvastatin Calcium* (Crestor*) 10 Mg Tablet 20 MG PO HS Discontinued Medications: Celecoxib* (Celebrex*) 100 Mg Capsule 100 MG PO QPM, CAP Clindamycin HCl (Clindamycin HCl) 300 Mg Capsule 1 CAP PO Q6H Discharge Summary: The patient was admitted by Isaac BARNETT with the following HPI:"Molly Monae is a 79-year-old female with past medical history of CAD s/p PTCA in 2011, hypertension, NIDDM, CKD stage 3b who presented to the ED with chief complaint of acute onset gross hematuria, urinary incontinence, urinary frequency/incontinence/urgency with associated symptoms of generalized weakness and pelvic pain x 1 day. Patient recently had episodes of syncope in the past couple months where she was seeing her ip litigation associate Dr. Manfred Rivera for. Patient had a loop recorder placed five days ago. Patient reports taking aspirin daily, no reported anticoagulant use. Patient denies prior CVA, GIB, or DVT/PE. Patient denies chest pain, palpitations, shortness of breath, fever, chills, weight loss. Patient is to be admitted for further workups and treatment." The patient did have a 22 point drop in her systolic blood pressure from sitting to standing when working with physical therapy I did inform the patient she needs to take her time when getting up from a seat. The patient is urinalysis demonstrated pyuria unlikely a UTI the patient continued to have some burning with the urination the urine culture grew out mixed ousmane I did send the patient home with a prescription for cephalexin for additional four days has been recommended the patient take a probiotic to avoid antibiotic induced colitis. Patient has 50-69% stenosis of the bilateral internal carotid arteries and recommended the patient follow up with Dr. Rivera in the outpatient setting for possible stent placement. The patient has a NIMISHA which was possibly secondary to ATN her creatinine did improve from a 1.44-1.18 on the day discharge Patient has a hemoglobin A1c of 8.7 was treated with a hyper and hypoglycemic protocol did not meet protocol all her fingerstick blood glucose readings were c ontrolled during hospitalization the patient is discharged with no changes in her diabetes regimen. Gen. No acute distress alert and oriented 4 Lungs clear to ascultation bilaterally, no wheezes rales or rhonchi appreciated Heart normal sinus rhythm no murmurs rubs or clicks noted Abdomen soft nontender bowel sounds are normoactive Lower extremities no clubbing cyanosis, nor edema appreciated bilaterally The patient felt ready to be discharged and was medically cleared to be discharged on 09/22/2024 The patient was seen and evaluated on day of discharge. Time spent on discharge 35 minutes *Problems/Diagnosis: (1) Syncope Status: Acute Total Time Spent on D/C: > 30 Minutes Date of Service: Sep 22, 2024 Billing Provider: MARIBELL MISHRA DO Common Visit Codes: 30754-ZMS/OBS DISCH DAY >30min MARIBELL MISHRA DO Sep 22, 2024 20:06
== END 2024-09-22 14:48 | disposition home or self-care (01) | DRG 689 ==
LOC: ER 10:52 → ED HOLD 12:53 → ORTHO 4S 17:40
PROVIDERS: ADMIT Nurse Practitioner Family; ATTEND Nurse Practitioner Family
DX: N30.01 Acute cystitis with hematuria (principal); N17.0 Acute kidney failure with tubular necrosis; E87.5 Hyperkalemia; I12.9 Hypertensive chronic kidney disease with stage 1 through stage 4 chronic kidney disease, or unspecified chronic kidney disease; I65.23 Occlusion and stenosis of bilateral carotid arteries; F32.A Depression, unspecified; K21.9 Gastro-esophageal reflux disease without esophagitis; I25.10 Atherosclerotic heart disease of native coronary artery without angina pectoris; Z96.651 Presence of right artificial knee joint; E11.22 Type 2 diabetes mellitus with diabetic chronic kidney disease; E78.00 Pure hypercholesterolemia, unspecified; E03.9 Hypothyroidism, unspecified; N18.32 Chronic kidney disease, stage 3b; I25.2 Old myocardial infarction; Z88.1 Allergy status to other antibiotic agents; Z88.0 Allergy status to penicillin; Z88.8 Allergy status to other drugs, medicaments and biological substances; Z79.82 Long term (current) use of aspirin; Z79.899 Other long term (current) drug therapy; Z90.49 Acquired absence of other specified parts of digestive tract; Z90.710 Acquired absence of both cervix and uterus; Z98.61 Coronary angioplasty status; Z91.018 Allergy to other foods; Z87.11 Personal history of peptic ulcer disease
CPT/HCPCS: 36415; 76770; 80053; 80061; 81001; 82948; 83036; 83735; 84145; 84439; 84443; 84550; 85025; 85027; 85610; 86885; 86900; 86901; 87081; 87088; 93005; 93880; 96365; 97161; 97530; 99285; G0378; J0360; J0696; J1815; J7030

== ENCOUNTER 2025-01-29 07:20 | Outpatient (CLI) | payer MEDICARE ==
[~2025-01-29 07:20] MED LIST changes: +ADV50100; -CELE-193 PO; +CEPH500C2 PO; -FEXO-271 PO; +FEXO-404 PO; -TIZA-205 PO
--- NOTE | 2025-01-29 09:54 | RADIOLOGY REPORT ---
PROCEDURE: MR MRI LUMBAR SPINE INDICATION: LOW BACK PAIN UNSPECIFIED Exam Date: 01/29/2025 08:28 AM COMPARISON: CT CT CERVICAL SPINE on DOS: 05/15/24, DI LUMBAR SPINE COMPLTE on DOS: 06/30/23 TECHNIQUE: MRI lumbar spine without intravenous contrast. FINDINGS: Transitional lumbosacral vertebral body. Multilevel disc degeneration. Alignment: No spondylolisthesis identified. Vertebrae: Vertebral body height is well maintained without evidence of a recent compression fracture. Modic type 2 endplate changes at L5-S1. Conus: Conus medullaris terminates at the T12-L1 level. Following levels detailed below: T12-L1: Disc desiccation. No spinal canal or neural foraminal stenosis. The facet joints are normal. L1-2: Disc desiccation. No spinal canal or neural foraminal stenosis. Facet arthrosis. L2-3: Disc desiccation and 3.35 mm disc bulge. No spinal canal stenosis. Mild left foraminal stenosis. The facet joints are normal. L3-4: Disc desiccation. Disc bulge with superimposed left subarticular disc extrusion. No spinal canal stenosis. Severe left foraminal stenosis with potential left exiting L3 nerve root compression. Facet arthrosis. L4-5: Disc desiccation and disc bulge. No spinal canal or neural foraminal stenosis. The facet joints are normal. L5-S1: Transitional level. Disc desiccation. Moderate disc height loss. No spinal canal or neural foraminal stenosis. The facet joints are normal. IMPRESSION: Transitional anatomy. Careful attention to vertebral numbering is recommended on subsequent examinations to ensure consistency. Multilevel disc degeneration. Multilevel foraminal stenosis, most pronounced and severe at L3-L4 with potential left exiting L3 nerve root compression.
== END 2025-01-29 23:59 | disposition home or self-care (01) ==
LOC: MRI 07:20
PROVIDERS: ATTEND Family Medicine
DX: M48.02 Spinal stenosis, cervical region (principal); M54.50 Low back pain, unspecified
CPT/HCPCS: 72148

== ENCOUNTER 2025-02-25 16:14 | Emergency (ER) | payer MEDICARE ==
[~2025-02-25] VITALS: Ht 154.9 cm; Wt 64.4 kg
[2025-02-25 16:17] VITALS: TEMP 97.6
[2025-02-25 17:07] LABS: MEAN PLATELET VOLUME 9.1 FL (7.4-10.4); RED CELL DISTRIBUTION WIDTH 15.8 % (11.5-14.5)
[2025-02-25 17:17] LABS: CREATININE 1.72 MG/DL (0.40-0.90); TOTAL CARBON DIOXIDE 28.4 MMOL/L (24-32); eCRCL 19 ML/MIN; eGFR 28 ML/MIN
[2025-02-25 18:58] LABS: LEUKOCYTE ESTERASE ,URINE NEGATIVE (Neg); NITRITES, URINE NEGATIVE (Neg); OCCULT BLOOD,URINE SMALL (Neg)
[2025-02-25 19:05] LABS: UA COLLECTION TYPE CLN CATCH MIDSTREAM
[2025-02-25 19:15] LABS: MUCUS STRANDS FEW /LPF (Neg); SQUAMOUS EPITHELIAL CELL,UR FEW /LPF (FEW)
--- NOTE | 2025-02-25 19:19 | Physician Documentation ---
History of Present Illness ~ Chief Complaint: Abdominal Pain Stated Complaint: R SIDE PAIN Time Seen by MD: 19:13 Primary Medical Doctor: DR SCAR SHARMA Mode of Arrival: POV HPI Patient presents to the emergency room with sudden onset right lower quadrant pains 01/29 that began this evening. She reports that she has been having some problems with this area over the past couple of months that has recently increased in frequency. Positive nausea but no vomiting. Bowel movements reported to be regular as his urine. Distant history of kidney stones. She has had previous appendectomy Medication Reconciliation Allergies: Coded Allergies: levofloxacin (Verified Allergy, Intermediate, 02/25/25) [place] And Derivatives (Unverified Allergy, Unknown, 02/25/25) Penicillins (Verified Allergy, Unknown, 02/25/25) PT TOLERATING ROCEPHIN 09/2024 adhesive tape (Unverified Allergy, Unknown, 02/25/25) diltiazem (Verified Allergy, Unknown, 02/25/25) pineapple (Unverified Adverse Reaction, Intermediate, " BLISTERS ORAL CAVITY ", 02/25/25) Uncoded Allergies: CITRUS (Allergy, Intermediate, Mouth ulcerations, 02/10/12) Scheduled Allopurinol (Allopurinol), 300 MG PO DAILY, (Reported) Aspirin (Ecotrin*), 1 TAB PO HS, (Reported) Cephalexin Monohydrate (Cephalexin), 1 CAP PO Q8H Cyanocobalamin* (Vitamin B-12*), 1 TAB PO DAILY, (Reported) Escitalopram Oxalate (Escitalopram Oxalate), 1 TAB DAILY, (Reported) Famotidine (Famotidine), 1 TAB PO Q12H, (Reported) Fexofenadine Hcl* (Judith*), 1 TAB PO DAILY, (Reported) Isosorbide Dinitrate* (Isordil*), 1 TAB PO BID Levothyroxine Sodium* (Levoxyl*), 50 MCG PO DAILY, (Reported) Lidocaine (Lidoderm), 1 PATCH TOP DAILY Metoprolol Succinate (Metoprolol Succinate), 1 TAB PO DAILY, (Reported) Multivitamin with Folic Acid (Tab-A-Jessica Tablet), 1 TAB DAILY, (Reported) Pantoprazole Sodium (Pantoprazole Sodium), 40 MG PO DAILY Polyethylene Glycol 3350 (Miralax), 17 GM PO DAILY, (Reported) Rosuvastatin Calcium* (Crestor*), 20 MG PO HS, (Reported) Scheduled PRN Hydrocodone Bit/Acetaminophen 5/325 MG (Finley 5/325 MG), 1 TAB PO Q6H PRN for pain, (Reported) Nitroglycerin (Nitroglycerin), 0.4 MG SL PRN PRN, (Reported) Miscellaneous Medications Fluticasone/Salmeterol (Advair 100-50 Diskus), (Reported) Past Medical History Past Medical History: Coronary Artery Disease, High Cholesterol, Hypertension, Myocardial Infarction, Vascular Disease, GERD, Peptic Ulcer Disease, Chronic Kidney Disease, Hernia, Diabetes, Thyroid (unspecified), Chronic Pain, Chronic Back Pain, Deep Vein Thrombosis, Gout, Osteoarthritis Past Surgical History: abdominal surgery, angioplasty, appendectomy, cholecystectomy, hysterectomy, orthopedic surgeries, other Alcohol Use: None Drug Use: none Lives with: Spouse Lives In: Home Occupation: retired Review of Systems ROS All review of systems negative except as per HPI Physical Exam Vital Signs: Temperature: 97.6, Source: Temporal, Heart Rate: 74, Respiratory Rate: 18, BP: 133/55, Pulse Oximetry: 99, Weight: 64.400 Oxygen Flow Rate: 0 Physical Exam General: Patient is awake, alert, oriented x4 in moderate distress Head: Normocephalic and atraumatic. Eyes: Conjunctival normal. EOMI. PERRL. ENT: Mucous membranes moist. Neck: Supple, trachea is midline. Chest: Clear to auscultation bilaterally without rales, rhonchi, or wheezes. There is no accessory muscle use or retractions. Cardiac: RRR without murmurs, gallops, or rubs. Abd: Soft, nondistended, positive tenderness to palpation to right lower quadrant Progress Results/Orders Results/Orders Orders - SAVAGE GARZON MD Ct Abdomen Pelvis (02/25/25 19:21) Completed Orders - SAVAGE GARZON MD Morphine 4mg/Ml Inj. (Morphine Inj.) (02/25/25 19:20) Ondansetron Inj. (Zofran 4mg/2ml Vial) (02/25/25 19:20) Acetaminophen 1,000mg/100ml Iv (Ofirmev (02/25/25 19:20) Ct Abdomen Pelvis (02/25/25 19:21) Tramadol Tablet (Ultram Tablet) (02/25/25 20:50) Medications Received in ER Medications (Trade) Dose Ordered Sig/Hunter Route PRN Reason Start Time Stop Time Status Last Admin Dose Admin (morphine inj.) 4 mg ONCE ONCE IV 02/25/25 19:20 02/25/25 19:21 DC 02/25/25 19:31 4 MG (Zofran 4mg/2ml vial) 4 mg ONCE ONCE IV 02/25/25 19:20 02/25/25 19:22 DC 02/25/25 19:32 4 MG Acetaminophen 100 ml @ 400 mls/hr ONCE ONCE IV 02/25/25 19:20 02/25/25 19:34 DC 02/25/25 19:32 400 MLS/HR (Ultram tablet) 50 mg ONCE ONCE PO 02/25/25 20:50 02/25/25 21:00 DC 02/25/25 21:08 50 MG Vital Signs 02/25/25 02/25/25 02/25/25 02/25/25 16:17 19:15 19:16 21:04 Temp 97.6 Pulse 74 74 69 Resp 16 18 20 16 B/P (MAP) 133/55 187/70 (109) 115/55 (75) Pulse Ox 99 96 94 O2 Flow Rate 0 Laboratory Tests Test 02/25/25 16:25 02/25/25 16:48 Urine Specimen Description Cln catch midstream Urine Color Yellow Urine Clarity Clear Urine pH 6.0 Urine Specific [place] 1.015 Urine Protein Negative Urine Glucose (UA) >=1000 H Urine Ketones Negative Urine Occult Blood Small Urine Nitrite Negative Urine Bilirubin Negative Urine Urobilinogen 0.2 Urine Leukocyte Esterase Negative Urine RBC 3-10 Urine WBC 5-10 H Urine Squamous Epithelial Cells Few Urine Bacteria Few Urine Mucus Few Urine Culture Indicated Indicated Volume Urine Centrifuged 10 ml Urine Comment White Blood Count 12.7 H Red Blood Count 4.05 L Hemoglobin 13.0 Hematocrit 39.5 Mean Corpuscular Volume 97.7 Mean Corpuscular Hemoglobin 32.2 H Mean Corpuscular Hemoglobin Concent 33.0 Red Cell Distribution Width 15.8 H Platelet Count 271 Mean Platelet Volume 9.1 Neutrophils (%) (Auto) 68.7 Lymphocytes (%) (Auto) 18.3 L Monocytes (%) (Auto) 10.4 Eosinophils (%) (Auto) 1.8 Basophils (%) (Auto) 0.8 Neutrophils # (Auto) 8.8 H Lymphocytes # (Auto) 2.3 Monocytes # (Auto) 1.3 H Eosinophils # (Auto) 0.2 Basophils # (Auto) 0.1 CBC Comment Sodium Level 138 Potassium Level 4.7 Chloride Level 104 Carbon Dioxide Level 28.4 Anion Gap 6 L Blood Urea Nitrogen 29 H Creatinine 1.72 H Estimated GFR/1.73 m2 28 BUN/Creatinine Ratio 16.9 Glucose Level 118 H Calcium Level 9.2 Total Bilirubin 0.3 Aspartate Amino Transf (AST/SGOT) 26 Alanine Aminotransferase (ALT/SGPT) 18 Alkaline Phosphatase 58 Total Protein 7.6 Albumin 3.9 Globulin 3.7 Albumin/Globulin Ratio 1.1 Lipase 50 Chemistry Comments Microbiology Date/Time Source Procedure Growth Status 02/25/25 19:15 Urine Clean Catch Midstream Urine Culture - Preliminary Culture received. Resulted Medical Decision Making Additional information obtaine: old records Findings Patient presents to the emergency room for evaluation of abdominal pain as per HPI. Differentials include but are not limited to kidney stone, diverticulitis, constipation, intra-abdominal infection, aortic pathology therefore emergent labs and imaging indicated. Labs and imaging reassuring. Mild elevation of white blood cell count which I attribute to a stress response. Upon re- evaluation patient was sleeping comfortably. Unknown cause. ER precautions discussed. Diff Dx GI Bleed:Consideration: Include: AE fistula, Angiodysplasia, Bleeding diathesis, Blood loss anemia, Carcinoma, Diverticulosis, Diverticulitis, Esophageal varicies, Esophagitis, Gastritis, Gastroenteritis, Inflammatory BD, Ashley-Obando syndrome, Meckel's diverticulum, PUD, Other Diff Dx Pain:Considerations: Include: AAA, -Complete, - Incomplete, -Inevitable, -Missed, -Threatened, Abruptio placentae, Angina/IN, Aortic dissection, Appendicitis, Bowel obstruction, Cholangitis, Cholecystitis, Cholelithasis, Constipation, Diverticular disease, Dysmenorrhea, Ectopic , Esophageal rupture, Esophagitis, Gastritis/PUD, Gastroenteritis, GI hemorrhage, Hernia, Hepatitis, Inflammatory BD, Ischemic bowel, Mass, Ovarian cyst/torsion, Pancreatitis, PID, Porphyria, Trauma, intraabdominal, Urinary obstruction, Urinary tract infection, Urolithiasis, Other Diff Dx N/V/D:Considerations: Include: Appendicitis, Bowel obstruction, Dehydration, DKA, Diarrhea - bacterial, Diarrhea - parasitic, Diarrhea - viral, Diverticulitis, Diverticulosis, Drug toxicity, Electrolyte imbalance, Food poisoning, Gastroenteritis, GE reflux, GI bleed, Hepatitis, Hernia, Hypovolemia, Hypotension, Inflammatory BD, Impaction, Malnutrition, Pancreatitis, , PUD, Renal failure, Urolithiasis, Urinary obstruction, UTI, Other Diff Dx Rectal:Considerations: Include: Fissure, Fistula, Foreign body, Impaction, Perirectal abscess, Rectal prolapse, Subcutaneous abscess, Thrombosed hemorrhoid, Ulcer, UTI, Other Departure Disposition: 01 HOME / SELF CARE / HOMELESS Impression: Primary Impression: Abdominal pain Condition: Improved Discharge Instructions: Abdominal Pain (Nonspecific) Referrals: NO PRIMARY CARE PROVIDER (PCP) Signature Scribe Signature: No scribe Attestation: The note accurately reflects work and decisions made by me.Savage Garzon MD 02/25/25 21:28 SAVAGE GARZON MD Feb 25, 2025 19:19
[2025-02-25] MEDS: morphine 4 MG/ML inj SYRINge IV ONE (19:31)
[2025-02-25] MEDS: ondansetron/PF 4mg/2ml inj IV ONE (19:32)
[2025-02-25] MEDS: acetaminophen 1,000mg/100ml IV 100 ML IV ONE (19:32)
--- NOTE | 2025-02-25 20:12 | RADIOLOGY REPORT ---
Exam: CT CT ABDOMEN PELVIS History: RLQ pain. h/o appendectomy COMPARISON: CT CT HEAD on DOS: 07/22/24, CT CT CERVICAL SPINE on DOS: 05/15/24, CT CT HEAD on DOS: 05/15/24, DI LUMBAR SPINE COMPLTE on DOS: 06/30/23 Technique: Multidetector spiral CT of the abdomen and pelvis was performed from lung bases to pubic symphysis. Axial, coronal and sagittal multiplanar reformats were performed by the technologist on a separate workstation. Radiation Dose : 1. Abdomen/Pelvis: CTDIvol 17.0 mGy, DLP 856.19 mGy*cm. Findings: Lung Bases: No acute or significant lung base finding. Normal heart size. No pleural or pericardial effusion. Liver: The liver is normal in size. No focal lesions. Gallbladder and Biliary Tree: Gallbladder is surgically absent. Spleen: Unremarkable Pancreas: Unremarkable. Adrenal Glands: Unremarkable Kidneys: Bilateral renal cortical cysts including a complex appearing cyst at the right midpole measuring 4.6 cm with a few nodular hyperdensities along the periphery. Bladder: Unremarkable Bowel: The stomach is grossly normal in appearance. Small bowel and colon are normal in caliber and distribution. Normal appendix is visualized in the right lower quadrant without findings of appendicitis. Ascites: Absent Lymphadenopathy: No mesenteric, retroperitoneal or periportal lymphadenopathy. Abdominal Wall and Mesentery: Unremarkable. Vasculature: Unremarkable. Pelvic Organs: Unremarkable Musculoskeletal: No aggressive focal bony lesions, acute fractures or dislocation. IMPRESSION: No acute abnormality. Few complex renal cysts. Elective/nonemergent CT or MRI renal protocol recommended for characterization. Radiation optimization: All CT scans at this facility use at least one of these dose optimization techniques: automated exposure control mA and/or kV adjustment per patient size (includes targeted exams where dose is matched to clinical indication) or iterative reconstruction.
[2025-02-25 21:04] VITALS: BP 115/55; PULSE 69; RESP 16; O2SAT 94
== END 2025-02-25 21:44 | disposition home or self-care (01) ==
LOC: ER 16:15
DX: R10.31 Right lower quadrant pain (principal); I12.9 Hypertensive chronic kidney disease with stage 1 through stage 4 chronic kidney disease, or unspecified chronic kidney disease; E11.22 Type 2 diabetes mellitus with diabetic chronic kidney disease; N18.9 Chronic kidney disease, unspecified; E78.00 Pure hypercholesterolemia, unspecified; G89.29 Other chronic pain; K21.9 Gastro-esophageal reflux disease without esophagitis; M19.90 Unspecified osteoarthritis, unspecified site; I25.2 Old myocardial infarction; I25.10 Atherosclerotic heart disease of native coronary artery without angina pectoris; Z86.718 Personal history of other venous thrombosis and embolism; Z88.0 Allergy status to penicillin; Z88.1 Allergy status to other antibiotic agents; Z91.048 Other nonmedicinal substance allergy status; Z90.49 Acquired absence of other specified parts of digestive tract; Z90.710 Acquired absence of both cervix and uterus; Z87.442 Personal history of urinary calculi; Z87.11 Personal history of peptic ulcer disease; Z79.899 Other long term (current) drug therapy; Z79.82 Long term (current) use of aspirin
CPT/HCPCS: 36415; 74176; 80053; 81001; 83690; 85025; 87088; 96365; 96375; 99285; J0131; J2270; J2405